=== PATIENT | female | born 1990 | race Two or more races ===

== ENCOUNTER 2023-12-21 17:45 | Outpatient (REF) | payer MEDICAID, SELFPAY ==
[2023-12-22 06:13] LABS: CT PCR NOT DETECTED (Not Detect.); NG PCR NOT DETECTED (Not Detect.)
[2023-12-22 10:43] LABS: Bacterial Vaginosis PCR NEGATIVE (Negative); Candida Group PCR DETECTED (Not Detect); Candida glab krusei PCR NOT DETECTED (Not Detect); Trichomonas vaginalis PCR NOT DETECTED (Not Detect)
== END 2023-12-21 17:46 | disposition home or self-care (01) ==
LOC: HO.HHCLNP 17:45
PROVIDERS: Visit Provider Emergency Medicine
DX: N89.8 Other specified noninflammatory disorders of vagina (principal); R10.2 Pelvic and perineal pain
CPT/HCPCS: 0352U; 87086; 87491; 87591

== ENCOUNTER 2024-07-09 14:33 | Outpatient (REF) | payer MEDICAID, SELFPAY ==
--- OUTSIDE RECORDS SUMMARY | 2024-07-09 17:21 | XMS_ITS | Clinical Summary ---
Author Organization [employer] Address [address] [place] [address] 7 [place] [address] Care Team Providers Care Autism Tutor Name Role Phone Unavailable Primary Care Provider Unavailabl e Allergies No known active allergies Medications acetaminophen (Tylenol) 500 MG tablet Take 2 tablets (1,000 mg) by mouth every 6 (six) hours if needed for moderate pain or fever for up to 25 doses. 30 tablet 12/21/2023 Active ibuprofen 400 MG tablet Take 1 tablet (400 mg) by mouth every 6 (six) hours if needed for moderate pain or fever for up to 30 doses. 30 tablet 12/21/2023 Active Sodium Fluoride (PreviDent 5000 Booster Plus) 1.1 % paste Apply 1 Application. to teeth 2 times daily. 112 g 3 07/05/2024 Active Active Problems No known active problems Encounters Date Type Department Care Team Description 07/09/2024 1:00 PM EST Office Visit [facility] [address] [place] [phone] Mariah Meneses MD Screening examination for STI (Primary Dx) 07/09/2024 Travel 07/05/2024 2:00 PM EST Office Visit [facility] ADULT DENTAL [address] [place] [address] Stephanie West Dental calculus (Primary Dx); Dental plaque; Subgingival dental calculus 06/27/2024 Patient Outreach [facility] [address] [place] [phone] Mariah Meneses MD Care Coordination (CHW outreach for SDOH housing search-referral completed ) 06/27/2024 Patient Outreach [facility] [address] [place] [address] Mariah Meneses MD Pre-visit Planning (SDOH screening positive and tobacco screening negative) 05/04/2024 Telephone [facility] [address] [place] [address] Moses Sinclair MD New patient appt. from Last 3 Months Social History Tobacco Use Types Packs/Day Years Used Date Smoking Tobacco: Never Smokeless Tobacco: Never Tobacco Cessation:Counseling Given: Not Answered Housing Stability Answer Date Recorded What is your housing situation today? I have radha garcia 07/09/[address] you li ve. Do you have problems with any of the following? None of the above 07/09/2024 Food Insecurity Answer Date Recorded Within the past 12 months, y ou worried that your food would run out before you got money to buy more: Never True 06/27/2024 Within the past 12 months,th e food you bought just didn't last and you didn't have enough money to get more: Never True Transportation Answer Date Recorded In the past 12 months, has l ack of transportation kept you from medical appts, meetings, work or from getting things needed for daily living? No 07/09/2024 Utilities Answer Date Recorded In the past 12 months, has t he electric, gas, oil or water company threatened to shut off services in your home? No 06/27/2024 Internet Access Answer Date Recorded Internet Access Q1 No 07/09/2024 Internet Access Q2 I do not want or need it 07/2024 Comments No Sex and Gender Information Value Date Recorded Sex Assigned at Female 12/21/2023 9:03 AM EDT Legal Sex Female 11:31 AM EDT Gender Identity Female 12/21/2023 9:03 AM EDT Sexual Orientation Straight 12/21/2023 9: 03 AM EDT Last Filed Vital Signs Vital Sign Reading Time Taken Comments Blood Pressure 104/66 07/09/2024 1:43 PM EST Pulse 74 07/09/2024 1:43 PM EST Temperature 36.2 ??C (97.2 ??F) 07/09/2024 1:43 PM ES T Respiratory Rate 16 07/09/2024 1:43 PM EST Oxygen Saturation 97% 07/09/2024 1:43 PM EST Inhaled Oxygen Concentration - - Weight 69.1 kg (152 lb 6 oz) 07/09/2024 1:43 PM EST Height 157.5 cm (5' 2 ) 07/09/2024 1:43 PM EST Body Mass Index 27.87 07/09/2024 1:43 PM EST Plan of Treatment Upcoming Encounters Date Type Department Care Team (Late st Contact Info) Description 07/23/2024 3:00 PM EDT Office Visit [facility] [address] [place] [address] Joslyn Issac, DMD [address] [place] [address] Health Maintenance Due Date Last Done Comments Depression Screening 1992 HIV Screening 1992 Alcohol/Substance Use Screening 2004 Family Planning (PISQ) 10/09/2007 Hepatitis C Screening 2010 DTaP/Tdap/Td Vaccines (1 - Tdap) 10/09/2011 Hepatitis B Vaccines (1 of 3 - 19+ 3-dose series) 10/09/2011 Pap Smear 2013 Cervical Cancer Screening 2022 HPV/Cotest 2022 COVID-19 Vaccine ( - 2023-2 5 season) 2024 Influenza Vaccine (#1) 2024 Dental Oral Exam 01/03/2025 07/05/2024 Dental Prophylaxis 01/03/2025 07/05/2024 Dental X-Ray: Bitewings 07/06/2025 07/05/19 25, 12/21/2023 SDOH Screening 07/09/2025 07/09/2024 Tobacco Screening 07/09/2025 07/09/2024 Dental X-Ray: Full Mouth 07/06/2027 07/05/2024 Zoster Vaccines (1 of 2) 2042 RSV Patients and Patients Aged 60 years or older (1 - 1-dose 75+ series) 10/09/2067 HIB Vaccines Aged Out No longer eligi ble based on patient's age to complete this topic HPV Vaccines Aged Out No longer eligi ble based on patient's age to complete this topic Hepatitis A Vaccines Aged Out No long er eligible based on patient's age to complete this topic IPV Vaccines Aged Out No longer eligi ble based on patient's age to complete this topic Meningococcal Vaccine Aged Out No lawanda manish eligible based on patient's age to complete this topic Pneumococcal Vaccine: Pediatrics (0 to 5 Years) and At-Risk Patients (6 to 49) Years) Aged Out No longer eligible b ased on patient's age to complete this topic RSV under 20 months Aged Out No longe r eligible based on patient's age to complete this topic Rotavirus Vaccines Aged Out No longer eligible based on patient's age to complete this topic Procedures Procedure Name Priority Date/Time Associated Diagnosis Comments PERIODIC ORAL EVALUATION - ESTABLISHED PATIENT Routine 07/05/2024 2:00 PM EST CASE PRESENTATION, DETAILED AND EXTENSIVE TREATMENT PLANNING Routine 07/05/2024 2:00 PM EST ORAL HYGIENE INSTRUCTIONS Routine 07/05/2024 2:00 PM EST Dental calculus Dental plaque Subgingival dental calculus INTRAORAL - COMPLETE SERIES OF RADIOGRAPHIC IMAGES Routine 07/05/2024 2:00 PM EST PROPHYLAXIS - ADULT Routine 07/05/2024 2 :00 PM EST Dental calculus Dental plaque Subgingival dental calculus 13 B COMPOSITE FILLING Routine 5 12:00 AM EST 21 MATTHEW COMPOSITE FILLING Routine 07/05/19 25 12:00 AM EST 13 O COMPOSITE FILLING Routine 5 12:00 AM EST 20 O COMPOSITE FILLING Routine 5 12:00 AM EST 8 ML COMPOSITE FILLING Routine 5 12:00 AM EST 29 DO COMPOSITE FILLING Routine 07/05/19 25 12:00 AM EST 2 MO COMPOSITE FILLING Routine 5 12:00 AM EST from Last 3 Months Insurance [employer] [facility] FULL DENTAL - [facility] FULL (MEDICAID) D[facility]AL-[facility] MEDICAID LIMITED ADULT
--- OUTSIDE RECORDS SUMMARY | 2024-07-09 17:21 | XMS_ITS | Encounter Summary ---
Author Organization [employer] Address [address] [facility] 7 [place] [address] Care Team Providers Care Liquor Maker Name Role Phone Unavailable Primary Care Provider Unavailabl e Reason for Visit * Reason Comments Pre-visit Planning SDOH screening posit david and tobacco screening negative Encounter Details Date Type Department Care Team ([facility] Contact Info) Description 06/27/2024 Patient Outreach [facility] [address] [place] [address] Mariah Meneses MD [address] [place] [address] Pre-visit Planning (SDOH screening positive and tobacco screening negative) Social History Tobacco Use Types Packs/Day Years Used Date Smoking Tobacco: Never Smokeless Tobacco: Never Housing Stability Answer Date Recorded What is your housing situation today? I have housing today, but I am worried about losing housing in the future 06/27/[address] you li ve. Do you have problems with any of the following? None of the above 06/27/2024 Food Insecurity Answer Date Recorded Within the [...] from getting things needed for daily living? Yes, it has kept me from non-medical meetings, work, or getting things that I need 06/27/2024 Utilities Answer Date Recorded In the past 12 months, has t he electric, gas, oil or water company threatened to shut off services in your home? No 06/27/2024 Internet Access Answer Date Recorded Internet Access Q1 Yes 06/27/2024 Internet Access Q2 Not on file 06/27/2024 Comments Unknown Sex and Gender Information Value Date Recorded Sex Assigned at Female 12/21/2023 9:03 AM EDT Legal Sex Female 11:31 AM EDT Gender Identity Female 12/21/2023 9:03 AM EDT Sexual Orientation Straight 12/21/2023 9: 03 AM EDT documented as of this encounter Progress Notes * Anastacia Peck - 06/27/2024 9:00 AM EST CC Anastacia placed successful outbound call to patient for pre-visit planning. Patient name and confirmed. Patient confirms date and time, and has transportation arrangements. Biggest concern for appointment appt at this time is none Appropriate screening completed in anticipation of appointment.Patient advised to bring to appointment a photo id and insurance card, SDOH positive. Patient looking for assistance with housing and transportation Referral will be placed. documented in this encounter Plan of Treatment Upcoming Encounters Date Type Department Care Team (Late st Contact Info) Description 07/23/2024 3:00 PM EDT Office Visit [facility] [address] [place] [address] Issac Jorgensen, DMD [address] [place] [address] documented as of this encounter Visit Diagnoses Not on filedocumented in this encounter
--- OUTSIDE RECORDS SUMMARY | 2024-07-09 17:21 | XMS_ITS | Encounter Summary ---
Author Organization [employer] Address [address] [facility] [address] [place] [address] Care Team Providers Care Manager Plan Name Role Phone Unavailable Primary Care Provider Unavailabl e Encounter Details Date Type Department Care Team (Latest Contact Info) Description 07/09/2024 Travel Social History Tobacco Use Types Packs/Day Years [...] AM EDT documented as of this encounter Plan of Treatment Upcoming Encounters Date Type Department Care Team (Late st Contact Info) Description 07/23/2024 3:00 PM EDT Office Visit [facility] ADULT DENT[facility] [address] [place] [address] Issac Jorgensen, DMD [address] [place] [address] documented as of this encounter Visit Diagnoses Not on filedocumented in this encounter
--- OUTSIDE RECORDS SUMMARY | 2024-07-09 17:21 | XMS_ITS | Encounter Summary ---
Author Organization [employer] Address [address] [facility] [address] [place] [address] Care Team Providers Care Delivery Associate Name Role Phone Unavailable Primary Care Provider Unavailabl e Reason for Visit * Reason Comments new patient appointment Encounter Details Date Type Department Care Team (Late st Contact Info) Description 07/09/2024 1:00 PM EST Office Visit [facility] [address] [place], [place] [phone] Mariah Meneses MD [address] [place], [place] [phone] Screening examination for STI (Primary Dx) Social History Tobacco Use Types Packs/Day Years Used Date Smoking Tobacco: Never Smokeless Tobacco: Never Tobacco Cessation:Counseling Given: Not Answered Housing Stability Answer Date Recorded What is your housing situation today? I have radhanegro garcia 07/09/[address] you [...] AM EDT documented as of this encounter Last Filed Vital Signs Vital Sign Reading [...] Mass Index 27.87 07/09/2024 1:43 PM EST documented in this encounter Plan of Treatment Upcoming Encounters Date Type Department Care Team (Late st Contact Info) Description 07/23/2024 3:00 PM EDT Office Visit [facility] ADULT DENT[facility] [address] [place] [address] Issac Jorgensen, DMD [address] [place] [address] Scheduled Orders Name Type Priority Associated Diagnoses Orde r Schedule Bacterial Vaginosis Panel Microbiology Routine Screening examination for STI Ordered: 07/09/2024 Chlamydia/N. Gonorrhoeae RNA, TMA, Urogenitial Microbiology Routine Screening examination for STI Expected: 07/09/2024 (Approximate), Expires: 07/09/2025 HIV-1/2 Antigen and Antibodies, Fourth Generation, with Reflexes Lab Routine Screening examination for STI Expected: 07/09/2024 (Approximate), Expires: 07/09/2025 Hepatitis C Antibody with Reflex to HCV, RNA, Quantitative, Real-Time PCR Lab Routine Screening examination for STI Expected: 07/09/2024, Expires: 07/09/2025 RPR (Monitor) with Reflex to??Titer Lab Routine Screening examination for STI Expected: 07/09/2024, Expires: 07/09/2025 documented as of this encounter Visit Diagnoses Diagnosis Screening examination for STI- Primary documented in this encounter
--- OUTSIDE RECORDS SUMMARY | 2024-07-09 17:21 | XMS_ITS | Encounter Summary ---
Author Organization [employer] Address [address] [facility] [address] [place] [address] Care Team Providers Care Dish Carrier Name Role Phone Unavailable Primary Care Provider Unavailabl e Reason for Visit * Reason Comments Routine Cleaning Dental Exam Encounter Details Date Type Department Care Team (Late st Contact Info) Description 07/05/2024 2:00 PM EST Office Visit [facility] ADULT DENTAL [address] [place] [address] Stephanie West Dental calculus (Primary Dx); Dental plaque; Subgingival dental calculus Social History Tobacco Use Types Packs/Day Years [...] not want or need it 07/2024 Comments Unknown Sex and Gender Information Value Date Recorded Sex Assigned at Female 12/21/2023 9:03 AM EDT Legal Sex Female 11:31 AM EDT Gender Identity Female 12/21/2023 9:03 AM EDT Sexual Orientation Straight 12/21/2023 9: 03 AM EDT documented as of this encounter Last Filed Vital Signs Vital Sign Reading Time Taken Comments Blood Pressure 126/82 07/05/2024 2:02 PM EST Pulse - - Temperature - - Respiratory Rate - - Oxygen Saturation - - Inhaled Oxygen Concentration - - Weight - - Height - - Body Mass Index - - documented in this encounter Progress Notes * Issac Jorgensen DMD - 07/05/2024 2:00 PM EST C/C: dental exam and sensitive LR posterior teeth I.O.E: erythematous and edematous gingiva, gen plaque and calculus accumulation, multiple broken fillings E.O.E: wnl OCS: wnl Head and neck: wnl Radiographic: gen moderate periodontal bone loss, multiple broken fillings with recurrent carious teeth Dx: gen chronic moderate periodontitis, multiple broken fillings, multiple carious teeth Tx: prophy, recall exam, fillings, SRP Med: Prevident Booster x 2 refills Suzy * Stephanie West - 07/05/2024 2:00 PM EST Patient ID: Yennifer Charles is a 33 y.o. female. Time Out: No data recorded Location: [facility] Tooth: Maxilla and Mandible Procedure: Exam, X-rays, and Prophylaxis Verified the above with patient, diploma medical assistant, and provider. Confirmed via patient's chart, intraorally and by radiographs. Research And Development Director: not applicable Medical Hx: Vitals: Blood pressure 126/82. Medications, Med Hx reviewed with patient and updated in chart. Treatment Provided Dental procedures in this visit D1110 - PROPHYLAXIS - ADULT (Completed) Service provider: Stephanie West Billing provider: Issac Jorgensen DMD D0210 - INTRAORAL - COMPLETE SERIES OF RADIOGRAPHIC IMAGES (Completed) Service provider: Stephanie West Billing provider: Issac Jorgensen DMD D0120 - PERIODIC ORAL EVALUATION - ESTABLISHED PATIENT (Completed) Service provider: Issac Jorgensen DMD Billing provider: Issac Jorgensen DMD D1330 - ORAL HYGIENE INSTRUCTIONS (Completed) Service provider: Stephanie West Billing provider: Issac Jorgensen DMD [id number] - CASE PRESENTATION, DETAILED AND EXTENSIVE TREATMENT PLANNING (Completed) Service provider: Stephanie West Billing provider: Issac Jorgensen DMD Instruments Used: Ultrasonic Scalers, Prophy angle, and floss Fluoride: N/A Oral Cancer Screening: No lesions Head/Neck Exam: No Lesions Calculus: Heavy, Generalized, and Subgingival Plaque: Moderate and Generalized Stain: None Bleeding: Heavy and Generalized Gingiva: Perio Charting Completed, Bleeding on probing, Erythematous, and Inflamed OH: Poor Perio Chart: Completed Patient presents with periodontal disease. Calculus present Subgingivally and Generalized that can be seen radiographically. BOP: Generalized and Heavy Exudate: Not Present Mobility: 0 Generalized Probing Depths Range: 4 to 5 mm Recession: 0 ranging from 0 to 0 mm. Gingiva: Inflamed and Erythematous Bone loss visible radiographically: Generalized Pre Authorization requested for SRP. SRP treatment needed to promote gingival health, arrest disease progression of periodontal disease and prevent tooth loss. Provider: Stephanie West Oral hygiene instructions provided to patient including brushing technique and flossing. Recommendations: [place] two times daily, modified galvez technique, Floss daily, Electric toothbrush, Soft bristle toothbrush, [place] Tongue, Anti-sensitivity toothpaste Recall Frequency: 6 mo NV: Upon localized SRP approval Hygienist: Stephanie West RDH Cosigned by Issac Jorgensen DMD at 07/09/2024 3:57 PM EST documented in this encounter Plan of Treatment Upcoming Encounters Date Type Department Care Team (Late st Contact Info) Description 07/23/2024 3:00 PM EDT Office Visit [facility] ADULT DENT[facility] [address] [place] [address] Issac Jorgensen DMD [address] [place] [address] Scheduled Orders Name Type Priority Associated Diagnoses Orde r Schedule UL UL PERIODONTAL SCALING AND ROOT PLANING - 1 TO 3 TEETH PER QUADRANT Dental Routine 1 Occurrences 07/05/2024 LL LL PERIODONTAL SCALING AND ROOT PLANING - 1 TO 3 TEETH PER QUADRANT Dental Routine 1 Occurrences 07/05/2024 UR UR PERIODONTAL SCALING AND ROOT PLANING - 1 TO 3 TEETH PER QUADRANT Dental Routine 1 Occurrences 07/05/2024 LR LR PERIODONTAL SCALING AND ROOT PLANING - 1 TO 3 TEETH PER QUADRANT Dental Routine 1 Occurrences 07/05/2024 30 MOD 30 MOD RESIN-BASED COMPOSITE - 3 SURF, POSTERIOR Dental Routine 1 Occurrences starting 07/05/2024 31 MO 31 MO RESIN-BASED COMPOSITE - 2 SURF, POSTERIOR Dental Routine 1 Occurrences 07/05/2024 4 MO 4 MO RESIN-BASED COMPOSITE - 2 SURF, POSTERIOR Dental Routine 1 Occurrences 07/05/2024 29 DO 29 DO RESIN-BASED COMPOSITE - 2 SURF, POSTERIOR Dental Routine 1 Occurrences 07/05/2024 10 ML 10 ML RESIN-BASED COMPOSITE - 2 SURF, ANTERIOR Dental Routine 1 Occurrences 07/05/2024 12 DO 12 DO RESIN-BASED COMPOSITE - 2 SURF, POSTERIOR Dental Routine 1 Occurrences 07/05/2024 documented as of this encounter Procedures Procedure Name Priority Date/Time Associated Diagnosis Comments PROPHYLAXIS - ADULT Routine 07/05/2024 2 :00 PM EST Dental calculus Dental plaque Subgingival dental calculus PERIODIC ORAL EVALUATION - ESTABLISHED PATIENT Routine 07/05/2024 2:00 PM EST ORAL HYGIENE INSTRUCTIONS Routine 07/05/2024 2:00 PM EST Dental calculus Dental plaque Subgingival dental calculus INTRAORAL - COMPLETE SERIES OF RADIOGRAPHIC IMAGES Routine 07/05/2024 2:00 PM EST CASE PRESENTATION, DETAILED AND EXTENSIVE TREATMENT PLANNING Routine 07/05/2024 2:00 PM EST 13 B COMPOSITE FILLING Routine 5 12:00 [...] COMPOSITE FILLING Routine 5 12:00 AM EST documented in this encounter Visit Diagnoses Diagnosis Dental calculus- Primary Accretions on teeth Dental plaque Accretions on teeth Subgingival dental calculus Accretions on teeth documented in this encounter
--- OUTSIDE RECORDS SUMMARY | 2024-07-09 17:21 | XMS_ITS | Encounter Summary ---
Author Organization [employer] Address [address] [facility] 7 [place] [address] Care Team Providers Care Blood Bank Business Manager Name Role Phone Unavailable Primary Care Provider Unavailabl e Reason for Visit * Reason Comments Care Coordination CHW outreach for SDO H housing search-referral completed Encounter Details Date Type Department Care Team (Latest Contact Info) Description 06/27/2024 Patient Outreach [facility] MED[facility] [address] [place] [address] Mariah Meneses MD [address] [place] [address] Care Coordination (CHW outreach for SDOH housing search-referral completed ) Social History Tobacco Use Types Packs/Day Years [...] as of this encounter Progress Notes * Leonid Good - 06/27/2024 1:06 PM EST CHW Leonid Good, placed outbound call to patient for assistance with SDOH as a referral was received by the provider. Patient's name and were confirmed. Patient screened positive for the following SDOH housing insecurities. CHW referred patient to list of housing and applications mail out to address on file. Patient verbalizes understanding, and able to agree to follow up with housing search and call. Patient educated on extended clinic hours on Mondays through Wednesdays, and Walk-In Urgent Care Located in [facility]. Patient provided with after-hours line for [facility], , which offer night time triage service and option to transfer to patient registration clerk provider if needed. documented in this encounter Plan of Treatment Upcoming Encounters Date Type Department Care Team (Late st Contact Info) Description 07/23/2024 3:00 PM EDT Office Visit [facility] ADULT DENTAL [address] [place] [address] Issac Jorgensen, DMD [address] [place] [address] documented as of this encounter Visit Diagnoses Not on filedocumented in this encounter
[2024-07-10 08:13] LABS: HIV AB/AG Nonreactive (Nonreactive); HIV Num 1 0.06 S/CO (0.00-0.99); ~HepC Num1 0.07 S/CO (0.00-0.79); ~Hepatitis C Antibody Nonreactive (Nonreactive)
[2024-07-10 11:38] LABS: RPR Rapid Plasma Reagin NON-REACTIVE (NON-REACTIVE)
[2024-07-10 13:09] LABS: CT PCR NOT DETECTED (Not Detect.); NG PCR NOT DETECTED (Not Detect.)
== END 2024-07-09 14:34 | disposition home or self-care (01) ==
LOC: HO.HHCL 14:33
PROVIDERS: Visit Provider General Practice
DX: Z11.3 Encounter for screening for infections with a predominantly sexual mode of transmission (principal)
CPT/HCPCS: 81515; 86592; 86803; 87389; 87491; 87591

== ENCOUNTER 2024-07-09 16:41 | Outpatient (REF) | payer MEDICAID, SELFPAY ==
--- OUTSIDE RECORDS SUMMARY | 2024-07-09 19:00 | XMS_ITS | Encounter Summary ---
Author Organization [facility] [employer] Address [address] [facility] 7t [place] [address] Care Team Providers Care Chip Applying Machine Tender Name Role Phone Unavailable Primary Care Provider Unavailabl e Reason for Visit * Reason Comments Routine Cleaning Dental Exam Encounter Details Date Type Department Care Team (Late st Contact Info) Description 07/05/2024 2:00 PM EST Office Visit [facility] ADULT DENTAL [address] [place] [address] Stephanie West Dental calculus (Primary Dx); Dental [...] female. Time Out: No data recorded Location: [facility] Tooth: Maxilla and Mandible Procedure: Exam, X-rays, and Prophylaxis Verified the above with patient, printing bindery assistant, and provider. Confirmed via patient's chart, intraorally and by radiographs. Commodities Broker: not applicable Medical Hx: Vitals: Blood pressure [...] patient including brushing technique and flossing. Recommendations: [place] two times daily, modified galvez technique, Floss daily, Electric toothbrush, Soft bristle toothbrush, [place] Tongue, Anti-sensitivity toothpaste Recall Frequency: 6 mo NV: Upon localized SRP approval Hygienist: Stephanie West RDH Cosigned by Issac Jorgensen DMD at 07/09/2024 3:57 PM EST documented in this encounter Plan of Treatment Upcoming Encounters Date Type Department Care Team (Late st Contact Info) Description 07/23/2024 3:00 PM EDT Office Visit [facility] ADULT DENTAL [address] [place] [address] Issac Jorgensen DMD [address] [place] [address] Scheduled Orders Name Type Priority Associated Diagnoses [...]
--- OUTSIDE RECORDS SUMMARY | 2024-07-09 19:00 | XMS_ITS | Encounter Summary ---
Author Organization [employer] Address [address] [facility] 7 [place] [address] Care Team Providers Care Senior Marketing Engineer Name Role Phone Unavailable Primary Care Provider Unavailabl e Reason for Visit * Reason Comments Care Coordination CHW outreach for SDO H housing search-referral completed Encounter Details Date Type Department Care Team (Latest Contact Info) Description 06/27/2024 Patient Outreach [facility] [address] [place] [address] Mariah Meneses MD [address] [place] [address] Care Coordination (CHW outreach for SDOH housing [...] Wednesdays, and Walk-In Urgent Care Located in [facility]. Patient provided with after-hours line for [facility], , which offer night time triage service and option to transfer to windows consultant provider if needed. documented in this encounter Plan of Treatment Upcoming Encounters Date Type Department Care Team (Late st Contact Info) Description 07/23/2024 3:00 PM EDT Office Visit [facility] ADULT DENTAL [address] [place] [address] Issac Jorgensen, DMD [address] [place] [address] documented as of this encounter Visit Diagnoses Not on filedocumented in this encounter
--- OUTSIDE RECORDS SUMMARY | 2024-07-09 19:00 | XMS_ITS | Clinical Summary ---
Author Organization [employer] Address [address] [place] [address] 7 [place] [address] Care Team Providers Care Staff Radiographer Name Role Phone Unavailable Primary Care Provider [...] Description 07/09/2024 1:00 PM EST Office Visit [facility] [address] [place] [phone] Mariah Meneses MD Screening examination for STI (Primary Dx) 07/09/2024 Travel 07/05/2024 2:00 PM EST Office Visit [facility]ULT [facility] [address] [place] [address] Stephanie West Dental calculus (Primary Dx); Dental plaque; Subgingival dental calculus 06/27/2024 Patient Outreach [facility] [address] [place] [phone] Mariah Meneses MD Care Coordination (CHW outreach for SDOH housing search-referral completed ) 06/27/2024 Patient Outreach [facility] [address] [place] [phone] Mariah Meneses MD Pre-visit Planning (SDOH screening positive and tobacco screening negative) 05/04/2024 Telephone [facility] [address] [place] [address] Moses Sinclair MD New patient appt. from [...] Description 07/23/2024 3:00 PM EDT Office Visit [facility] ADULT [facility] [address] [place] [address] Joslyn Issac, DMD [address] [place] [address] Health Maintenance Due Date Last Done Comments [...] AM EST from Last 3 Months Insurance [employer] HSN FULL DENTAL - HSN FULL (MEDICAID) DENTAL-[facility] MEDICAID LIMITED ADULT
--- OUTSIDE RECORDS SUMMARY | 2024-07-09 19:00 | XMS_ITS | Encounter Summary ---
Author Organization [employer] Address [address] [facility] 7 [place] [address] Care Team Providers Care Mop Maker Name Role Phone Unavailable Primary Care Provider Unavailabl e Reason for Visit * Reason Comments Pre-visit Planning SDOH screening posit david and tobacco screening negative Encounter Details Date Type Department Care Team ([facility] Contact Info) Description 06/27/2024 Patient Outreach [facility] [address] [place] [address] Mariah Meneses MD [address] [place] [address] Pre-visit Planning (SDOH screening positive and tobacco [...] Description 07/23/2024 3:00 PM EDT Office Visit [facility] ADULT D[facility] [address] [place] [address] Issac Jorgensen, DMD [address] [place] [address] documented as of this encounter Visit Diagnoses Not on filedocumented in this encounter
--- OUTSIDE RECORDS SUMMARY | 2024-07-09 19:00 | XMS_ITS | Encounter Summary ---
Author Organization [employer] Address 75 [facility] 7 [place] [address] Care Team Providers Care Plexiglas Former Name Role Phone Unavailable Primary Care Provider Unavailabl e Reason for Visit * Reason Comments new patient appointment Encounter Details Date Type Department Care Team (Late st Contact Info) Description 07/09/2024 1:00 PM EST Office Visit [facility] [address] [place], [place] [phone] Mariah Meneses MD [address] [place], [place] [phone] Screening examination for STI (Primary Dx) Social [...] 3:00 PM EDT Office Visit [facility] ADULT D[facility] [address] [place] [address] Issac Jorgensen, DMD [address] [place] [address] Scheduled Orders Name Type Priority Associated Diagnoses [...]
--- OUTSIDE RECORDS SUMMARY | 2024-07-09 19:01 | XMS_ITS | Encounter Summary ---
Author Organization [employer] Address 75 [facility] 7t [place] [address] Care Team Providers Care Tooler Name Role Phone Unavailable Primary Care Provider [...] Description 07/23/2024 3:00 PM EDT Office Visit [facility] ADULT DENTAL [address] [place] [address] Issac Jorgensen, DMD [address] [place] [address] documented as of this encounter Visit Diagnoses Not on filedocumented in this encounter
[2024-07-10 11:05] LABS: Bacterial Vaginosis PCR POSITIVE (Negative); Candida Group PCR NOT DETECTED (Not Detect); Candida glab krusei PCR NOT DETECTED (Not Detect); Trichomonas vaginalis PCR NOT DETECTED (Not Detect)
== END 2024-07-09 16:42 | disposition home or self-care (01) ==
LOC: HO.LNP 16:41
PROVIDERS: Visit Provider General Practice
DX: Z11.3 Encounter for screening for infections with a predominantly sexual mode of transmission (principal)
CPT/HCPCS: 81515

== ENCOUNTER 2024-08-29 13:41 | Outpatient (REF) | payer MEDICAID, SELFPAY ==
[2024-08-29 15:10] LABS: Bacterial Vaginosis PCR POSITIVE (Negative); Candida Group PCR DETECTED (Not Detect); Candida glab krusei PCR NOT DETECTED (Not Detect); Trichomonas vaginalis PCR NOT DETECTED (Not Detect)
[2024-08-29 15:42] LABS: CT PCR NOT DETECTED (Not Detect.); NG PCR NOT DETECTED (Not Detect.)
--- OUTSIDE RECORDS SUMMARY | 2024-08-29 16:21 | XMS_ITS | Clinical Summary ---
Author Organization [employer] Address 75 [facility] 7t [place] [address] Care Team Providers Care Manager Assisted Living Name Role Phone Mariah Meneses MD Primary Care Provider [phone] Allergies No known active allergies Medications clotrimazole (Gyne-Lotrimin ) 1 % vaginal creamIndicatio ns:Vaginal pain,Vaginal discharge Insert 1 applicator into the vagina in the evening for 7 days. 45 g 08/30/19 25 025 Active acetaminophen (Tylenol) 500 MG tablet Take 2 tablets (1,000 mg) by mouth every 6 (six) hours if needed for moderate pain or fever for up to 25 doses. 30 tablet 12/21/19 24 025 Discontinued ibuprofen 400 MG tablet Take 1 tablet (400 mg) by mouth every 6 (six) hours if needed for moderate pain or fever for up to 30 doses. 30 tablet 12/21/19 24 025 Discontinued Sodium Fluoride (PreviDent 5000 Booster Plus) 1.1 % paste Apply 1 Application. to teeth 2 times daily. 112 g 3 07/05/19 25 025 Discontinued Active Problems Problem Noted Date Diagnosed Date Vaginal discharge 08/29/2024 Assessment & Plan (08/29/2024 1:09 PM EDT): Possible yeast infection I will treat empirically wit clotrimazole cream, patient will be contacted with results Screening examination for STI 07/11/2024 Encounters Date Type Department Care Team Description 08/29/2024 10:00 AM EDT Office Visit [facility] [address] [phone] Sandra Garcia MD Vaginal pain; Vaginal discharge 07/23/2024 3:00 PM EDT Office Visit [facility] ADULT DENTAL [address] [place] [address] Rastaandrés IssacDARRELL 07/11/2024 [place] [address] Mariah Meneses MD Results 07/09/2024 1:00 [place] [address] Mariah Meneses MD Screening examination for STI (Primary Dx); Dietary counseling; Exercise counseling; Overweight; Inadequate housing utilities; Bacterial vaginosis 07/09/2024 Travel 07/05/2024 2:00 PM EST Office Visit [facility] ADULT [facility] [address] [place] [address] Stephanie West Dental calculus (Primary Dx); Dental plaque; Subgingival dental calculus 06/27/2024 [place] [address] Mariah Meneses MD Care Coordination (CHW outreach for [facility] housing search-referral completed ) 06/27/2024 [place] [address] Mariah Meneses MD Pre-visit Planning (SDOH screening positive and tobacco screening negative) from Last 3 Months Social History Tobacco Use Types Packs/Day Years Used Date Smoking Tobacco: Never Smokeless Tobacco: Never Tobacco Cessation:Counseling Given: Not Answered Alcohol Use Standard Drinks/Week Comments Never 0 (1 standard drink = 0.6 oz pur e alcohol) Housing Stability Answer Date Recorded What is your housing situation today? I have radha jose 07/09/[address] you li [...] Sign Reading Time Taken Comments Blood Pressure 109/69 08/29/2024 9:41 AM EDT Pulse 75 08/29/2024 9:41 AM EDT Temperature 36.7 ??C (98.1 ??F) 08/29/2024 9:41 AM ED T Respiratory Rate 16 08/29/2024 9:41 AM EDT Oxygen Saturation 98% 08/29/2024 9:41 AM EDT Inhaled Oxygen Concentration - - Weight 70.3 kg (155 lb) 08/29/2024 9:41 AM EDT Height 157.5 cm (5' 2 ) 07/09/2024 1:43 PM EST Body Mass Index 28.35 07/09/2024 1:43 PM EST Plan of Treatment Upcoming Encounters Date Type Department Care Team (Late st Contact Info) Description 09/03/2024 3:00 PM EDT Office Visit [facility]ULT [facility] [address] [place] [address] Issac Jorgensen, DARRELL [address] [place] [address] 09/17/2024 2:00 PM EDT Office Visit [facility] [address] [place] [address] Stephanie West 10/17/2024 2:00 PM EDT Office Visit [facility] [address] [place] [address] Jenna Stephanie Health Maintenance Due Date Last Done Comments Depression Screening 1992 Alcohol/Substance Use Screening 2004 DTaP/Tdap/Td Vaccines (1 - Tdap) 10/09/2011 Hepatitis B Vaccines (1 of 3 - 19+ 3-dose series) 10/09/2011 Pap Smear 2013 Cervical Cancer Screening 2022 HPV/Cotest 2022 COVID-19 Vaccine (1 - 2023-2 5 season) 2024 Influenza Vaccine (#1) 2024 Dental Oral Exam 01/03/2025 07/05/2024 Dental Prophylaxis 01/03/2025 07/05/2024 Dental X-Ray: Bitewings 07/06/2025 07/05/19 25, 12/21/2023 SDOH Screening 07/09/2025 07/09/2024 Family Planning (PISQ) 07/11/2025 07/11/2024 Tobacco Screening 07/23/2025 07/23/2024 Dental X-Ray: Full Mouth 07/06/2027 07/05/2024 Zoster Vaccines (1 of 2) 2042 RSV Patients and Patients Aged 60 years or older (1 - 1-dose 75+ series) 10/09/2067 HIV Screening Completed 07/09/2024 Hepatitis C Screening Completed 07/09/2024 HIB Vaccines Aged Out No longer eligi [...] Procedure Name Priority Date/Time Associated Diagnosis Comments POCT URINALYSIS DIPSTICK Routine 08/29/2024 9:53 AM EDT Vaginal pain BACTERIAL VAGINOSIS PANEL Routine 08/29/2024 9:44 AM EDT Vaginal pain CHLAMYDIA/N. GONORRHOEAE RNA, TMA, UROGENITAL Routine 08/29/2024 9:44 AM EDT Vaginal pain CASE PRESENTATION, DETAILED AND EXTENSIVE TREATMENT PLANNING Routine 07/23/2024 3:00 PM EDT 12 DO RESIN-BASED COMPOSITE - 2 SURF, POSTERIOR Routine 07/23/2024 3:00 PM EDT 19 B RESIN-BASED COMPOSITE - 1 SURF, POSTERIOR Routine 07/23/2024 3:00 PM EDT RPR (MONITOR) W/REFL TITER Routine 07/09/2024 2:36 PM EST Screening examination for STI HEPATITIS C AB W/REFL TO HCV RNA, QN, PCR Routine 07/09/2024 2:36 PM EST Screening examination for STI HIV 1/2 ANTIGEN/ANTIBODY, FOURTH GENERATION W/RFL Routine 07/09/2024 2:36 PM EST Screening examination for STI CHLAMYDIA/N. GONORRHOEAE RNA, TMA, UROGENITAL Routine 07/09/2024 2:36 PM EST Screening examination for STI BACTERIAL VAGINOSIS PANEL Routine 07/09/2024 12:00 AM EST Screening examination for STI PERIODIC ORAL EVALUATION - ESTABLISHED PATIENT Routine [...] dental calculus 13 B COMPOSITE FILLING Routine 07/05/2024 12:00 AM EST 21 MATTHEW COMPOSITE FILLING Routine 07/05/2024 12:00 AM EST 13 O COMPOSITE FILLING Routine 07/05/2024 12:00 AM EST 20 O COMPOSITE FILLING Routine 07/05/2024 12:00 AM EST 8 ML COMPOSITE FILLING Routine 07/05/2024 12:00 AM EST 29 DO COMPOSITE FILLING Routine 07/05/2024 12:00 AM EST 2 MO COMPOSITE FILLING Routine 07/05/2024 12:00 AM EST from Last 3 Months Results * (ABNORMAL) POCT urinalysis dipstick manually resulted (08/29/2024 9:53 AM EDT) Color, UA Yellow Clarity, UA Clear Glucose, UA Negative Bilirubin, UA Negative Ketones, UA Negative Spec Grav, UA 1.025 Blood, UA Negative Negative, None Detected pH, UA 6.0 Protein, UA Negative Urobilinogen, UA 0.2 Leukocytes, UA Few 15(A) Negative, Rare, Trace Nitrite, UA Negative Negative, None Detected Appearance, UA OK Urine 08/29/2024 9:53 AM EDT Sandra Portillo MD POINT OF CARE TEST EN TER/EDIT ORDERABLES Final Result * (ABNORMAL) Bacterial Vaginosis (08/29/2024 9:44 AM EDT) Only the most recent of2 resultswithin the time period is included. TRICHOMONAS VAGINALIS DETECTION BY PCR NOT DETECTED Not Detect [facility] BACTERIAL VAGINOSIS DETECTION BY PCR POSITIVE(A) Negative [facility] Comment:The BV organism targ ets of the Xpert Xpress MVP test can becommensal in women; Xpert Xpress MVP positive results forbacterial vaginosis should be considered in conjunction withother clinical and patient information to determine thedisease status. Organisms that are not detected by the XpertXpress MVP test have also been reported to be associatedwith BV and aerobic vaginitis.The Xpert Xpress MVP test performance has not been evaluatedin patients under the age of 14. LIDA GROUP DETECTION BY PCR DETECTED(A) Not Detect [facility] Lida glab krusei PCR NOT DETECTED Not Detect [facility] Swab Vaginal structure / Unknown 08/29/2024 9:44 AM EDT 08/29/2024 1:43 PM EDT Sandra Portillo MD LAB MICROBIOLOGY - GE NERAL ORDERABLES Final Result [facility] [address] [place] [address] [phone] * Chlamydia/N. Gonorrhoeae RNA, TMA, Urogenitial (08/29/2024 9:44 AM EDT) Only the most recent of2 resultswithin the time period is included. CT PCR NOT DETECTED Not Detect. [facility] Comment:A not detected test result does not exclude the possibilityof infection because test results can be affected byimproper specimen collection, concurrent antibiotic therapy,or the number of organisms in the specimen which may bebelow the sensitivity of the test. As with many diagnostictests, results from the Xpert CT/NG assay should beinterpreted in conjunction with other laboratory andclinical data available to the clinician.Xpert CT/NG performance has not been evaluated in patientsless than 14 years of age. The assay should not be used forthe evaluationof suspected sexual abuse or for other medico-legalindications. Additional testing is recommended in anycircumstance when false positive or false negative resultscould lead to adverse medical, social or psychologicalconsequences. NG PCR NOT DETECTED Not Detect. [facility] Comment:A not detected test result does not exclude the possibilityof infection because test results can be affected byimproper specimen collection, concurrent antibiotic therapy,or the number of organisms in the specimen which may bebelow the sensitivity of the test. As with many diagnostictests, results from the Xpert CT/NG assay should beinterpreted in conjunction with other laboratory andclinical data available to the clinician.Xpert CT/NG performance has not been evaluated in patientsless than 14 years of age. The assay should not be used forthe evaluationof suspected sexual abuse or for other medico-legalindications. Additional testing is recommended in anycircumstance when false positive or false negative resultscould lead to adverse medical, social or psychologicalconsequences. Swab (Vaginal Swab) 08/29/2024 9:44 AM EDT 08/29/2024 1:43 PM EDT Narrative [facility] - 08/29/2024 3:42 PM EDT Vaginal us Sandra Portillo MD LAB MICROBIOLOGY - GE NERAL ORDERABLES Final Result Performing Organization Address [facility] Co de Phone Number [facility] [address] [place] [phone] * Hepatitis C Antibody with Reflex to HCV, RNA, Quantitative, Real-Time PCR (07/09/2024 2:36 PM EST) Hepatitis C Antibody Nonreactive Nonreactive [facility] Comment:Antibodies to HCV no t detected; does not exclude early acuteHCV infection. Blood Venous blood specimen / Unknown 07/09/2024 2:36 PM EST 07/09/2024 4:20 PM EST us Mariah Meneses MD LAB BLOOD ORDERABLES Final Res ult Performing Organization Address [facility] Co de Phone Number [facility] [address] [place] [phone] * RPR (Monitor) with Reflex to??Titer (07/09/2024 2:36 PM EST) RPR (Monitor) w/Refl Titer NON-REACTI VE NON-REACT AUGIE [facility] Comment:THIS TEST WAS PERFOR MED AT:[address] [place] [phone] KEITA MD Rapid Plasma Reagin Ab Titer TNP [facility] Blood Venous blood specimen / Unknown 07/09/2024 2:36 PM EST 07/09/2024 4:20 PM EST us Mariah Meneses MD LAB BLOOD ORDERABLES Final Res ult Performing Organization Address [facility]/ZIP Co de Phone Number [facility] [address] [place] [phone] * HIV-1/2 Antigen and Antibodies, Fourth Generation, with Reflexes (07/09/2024 2:36 PM EST) HIV AB/AG Nonreactive Nonreactive [facility] Comment:HIV-1 p24 Ag and/or HIV-1/HIV-2 Ab not detected.A test result that is nonreactive does not exclude thepossibility of exposure to or infection with HIV-1 and/orHIV-2. Nonreactive results in this assay for individualswith prior exposure to HIV-1 and/or HIV-2 may be due toantigen and antibody levels that are below the limit ofdetection of this assay.The Granular HIV Ag/Ab Combo assay result andsupplemental assay results should be interpreted inconjunction with the patient's clinical presentation,history and other laboratory results. If the results areinconsistent with clinical evidence, additional testing issuggested to confirm the result. Blood Venous blood specimen / Unknown 07/09/2024 2:36 PM EST 07/09/2024 4:20 PM EST us Mariah Meneses MD LAB BLOOD ORDERABLES Final Res ult Performing Organization Address [facility] Co de Phone Number [facility] [address] [place] [phone] from Last 3 Months Insurance [employer] HSN FULL DENTAL - HSN FULL (MEDICAID) DENTAL-[facility] MEDICAID LIMITED ADULT Care Teams Manager Assisted Living Relationship Specialty Start Date End Date Mariah Meneses MD [address] [place] [phone] PCP - General Family Medicine 07/11/24
--- OUTSIDE RECORDS SUMMARY | 2024-08-29 16:21 | XMS_ITS | Encounter Summary ---
Author Organization [employer] Address [address] [facility] 7t [place] [address] Care Team Providers Care Scratch Finisher Name Role Phone Mariah Meneses MD Primary Care Provider [phone] Reason for Visit * Reason Comments Vaginal Pain Encounter Details Date Type Department Care Team ([facility] st Contact Info) Description 08/29/2024 10:00 AM EDT Office Visit [facility] [address] [place] [address] [phone] Sandra Garcia MD [address] [place] [address] Vaginal pain; Vaginal discharge Social History Tobacco Use Types Packs/Day Years Used Date Smoking Tobacco: Never Smokeless Tobacco: Never Alcohol Use Standard Drinks/Week Comments Never 0 [...] (155 lb) 08/29/2024 9:41 AM EDT Height - - Body Mass Index 28.35 07/09/2024 1:43 PM EST documented in this encounter Progress Notes * Sandra Portillo MD - 08/29/2024 10:00 AM EDT SUBJECTIVE: Yennifer Charles is a 33 y.o. year old female who presents for vaginal pain/burning/itchiness and discharge . 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 Review of Systems Constitutional: Negative. HENT: Negative. Respiratory: Negative. Cardiovascular: Negative. Genitourinary: Positive for dysuria, vaginal discharge and vaginal pain. Negative for decreased urine volume, difficulty urinating, dyspareunia, enuresis, flank pain, frequency, genital sores, hematuria, menstrual problem, pelvic pain, urgency and vaginal bleeding. OBJECTIVE: Vitals: 08/29/24 0941 BP: 109/69 BP Location: Left arm Patient Position: Sitting BP Cuff Size: Adult Pulse: 75 Resp: 16 Temp: 98.1 ??F (36.7 ??C) TempSrc: Temporal SpO2: 98% Weight: 155 lb (70.3 kg) Physical Exam Constitutional: Appearance: Normal appearance. Cardiovascular: Rate and Rhythm: Normal rate and regular rhythm. Pulmonary: Effort: Pulmonary effort is normal. Breath sounds: Normal breath sounds. Abdominal: General: Abdomen is flat. Palpations: Abdomen is soft. Musculoskeletal: Right lower leg: No edema. Left lower leg: No edema. Neurological: Mental Status: She is alert. Follow Up: No follow-ups on file. Current Outpatient Medications on File Prior to Visit Medication Sig Dispense Refill [DISCONTINUED] acetaminophen (Tylenol) 500 MG tablet Take 2 tablets (1,000 mg) by mouth every 6 (six) hours if needed for moderate pain or fever for up to 25 doses. (Patient not taking: Reported on 07/23/2024) 30 tablet 0 [DISCONTINUED] ibuprofen 400 MG tablet Take 1 tablet (400 mg) by mouth every 6 (six) hours if needed for moderate pain or fever for up to 30 doses. (Patient not taking: Reported on 07/23/2024) 30 tablet 0 [DISCONTINUED] Sodium Fluoride (PreviDent 5000 Booster Plus) 1.1 % paste Apply 1 Application. to teeth 2 times daily. (Patient not taking: Reported on 07/23/2024) 112 g 3 No current facility-administered medications on file prior to visit. Problem List Items Addressed This Visit Vaginal discharge Possible yeast infection I will treat empirically wit clotrimazole cream, patient will be contactedwith results Relevant Medications clotrimazole (Gyne-Lotrimin) 1 % vaginal cream Other Relevant Orders Culture, Urine, Routine Other Visit Diagnoses Vaginal pain Relevant Medications clotrimazole (Gyne-Lotrimin) 1 % vaginal cream Other Relevant Orders Chlamydia/N. Gonorrhoeae RNA, TMA, Urogenitial Bacterial Vaginosis POCT urinalysis dipstick manually resulted (Completed) documented in this encounter Miscellaneous Notes * Assessment & Plan Note - Sandra Portillo MD - 08/29/2024 1:09 PM EDT Associated Problem(s): Vaginal discharge Possible yeast infection I will treat empirically wit clotrimazole cream, patient will be contactedwith results documented in this encounter Plan of Treatment Upcoming Encounters Date Type Department Care Team (Late st Contact Info) Description 09/03/2024 3:00 PM EDT Office Visit [facility] [address] [place] [address] Issac Jorgensen, DMD [address] [place], [place] [phone] 09/17/2024 2:00 PM EDT Office Visit [facility] [address] [place] [address] Stephanie West 10/17/2024 2:00 PM EDT Office Visit [facility] [address] [place] [address] Stephanie West Scheduled Orders Name Type Priority Associated Diagnoses Orde r Schedule Culture, Urine, Routine Microbiology Routine Vaginal discharge Ordered: 08/29/2024 documented as of this encounter Procedures Procedure Name Priority Date/Time Associated Diagnosis Comments POCT URINALYSIS DIPSTICK Routine 08/29/2024 9:53 AM EDT Vaginal pain BACTERIAL VAGINOSIS PANEL Routine 08/29/2024 9:44 AM EDT Vaginal pain CHLAMYDIA/N. GONORRHOEAE RNA, TMA, UROGENITAL Routine 08/29/2024 9:44 AM EDT Vaginal pain documented in this encounter Results * (ABNORMAL) POCT urinalysis dipstick manually [...] (ABNORMAL) Bacterial Vaginosis (08/29/2024 9:44 AM EDT) TRICHOMONAS VAGINALIS DETECTION BY PCR NOT DETECTED Not Detect [facility] BACTERIAL VAGINOSIS DETECTION BY PCR POSITIVE(A) Negative [facility] Comment:The BV organism targ ets of [...] GROUP DETECTION BY PCR DETECTED(A) Not Detect [facility] Lida glab krusei PCR NOT DETECTED Not Detect [facility] Swab Vaginal structure / Unknown 08/29/2024 9:44 AM EDT 08/29/2024 1:43 PM EDT Sandra Portillo MD LAB MICROBIOLOGY - GE NERAL ORDERABLES Final Result [facility] [address] [place] [address] [phone] * Chlamydia/N. Gonorrhoeae RNA, TMA, Urogenitial (08/29/2024 9:44 AM EDT) CT PCR NOT DETECTED Not Detect. [facility] Comment:A not detected test result does [...] psychologicalconsequences. NG PCR NOT DETECTED Not Detect. [facility] Comment:A not detected test result does [...] AM EDT 08/29/2024 1:43 PM EDT Narrative [facility] - 08/29/2024 3:42 PM EDT Vaginal us Sandra Portillo MD LAB MICROBIOLOGY - GE NERAL ORDERABLES Final Result [facility] [address] [place] [phone] documented in this encounter Visit Diagnoses Diagnosis Vaginal pain Unspecified symptom associated with female genital organs Vaginal discharge Leukorrhea, not specified as infective documented in this encounter Care Teams Scratch Finisher Relationship Specialty Start Date End Date Mariah Meneses MD [address] [place] [address], [place] [address] PCP - General Family Medicine 07/11/24 documented as of this encounter
== END 2024-08-29 13:42 | disposition home or self-care (01) ==
LOC: HO.HHCLNP 13:41
PROVIDERS: Visit Provider Internal Medicine
DX: R10.2 Pelvic and perineal pain (principal); N89.8 Other specified noninflammatory disorders of vagina
CPT/HCPCS: 81515; 87086; 87491; 87591

== ENCOUNTER 2024-11-05 13:05 | Outpatient (REF) | payer MEDICAID, SELFPAY ==
[2024-11-05 20:52] LABS: Bacterial Vaginosis PCR POSITIVE (Negative); Candida Group PCR DETECTED (Not Detect); Candida glab krusei PCR NOT DETECTED (Not Detect); Trichomonas vaginalis PCR NOT DETECTED (Not Detect)
[2024-11-05 21:50] LABS: CT PCR NOT DETECTED (Not Detect.); NG PCR NOT DETECTED (Not Detect.)
== END 2024-11-05 13:06 | disposition home or self-care (01) ==
LOC: HO.HHCLNP 13:05
PROVIDERS: Visit Provider Family Medicine
DX: R39.9 Unspecified symptoms and signs involving the genitourinary system (principal); N76.0 Acute vaginitis
CPT/HCPCS: 81515; 87086; 87491; 87591

== ENCOUNTER 2024-11-29 11:25 | Outpatient (REF) | payer MEDICAID, OTHER, SELFPAY ==
--- OUTSIDE RECORDS SUMMARY | 2024-11-29 12:22 | XMS_ITS | Clinical Summary ---
Author Organization [employer] Address [address] [place] [address] [address] [place] [address] Care Team Providers Care Insulation Board Back Tender Name Role Phone Mariah Meneses MD Primary Care Provider [phone] Allergies No known active allergies Medications * This document contains information received from the source organization and may not represent a complete record from that organization. baclofen (Lioresal) 10 MG tabletIndicatio ns:Muscle tension pain Take 1 tablet (10 mg) by mouth 3 times daily for 14 days. 42 tablet 5 Active ondansetron (Zofran) 4 MG tabletIndicatio ns:Nausea Take 1 tablet (4 mg) by mouth every 8 (eight) hours if needed for nausea or vomiting for up to 10 doses. 10 tablet 5 Active acetaminophen (Tylenol 8 Hour) 650 MG ER tablet Take 1 tablet (650 mg) by mouth every 8 (eight) hours if needed for mild pain. Do not crush, chew, or split. 40 tablet 1 5 12/06/19 25 Active metroNIDAZOLE (Flagyl) 500 MG tablet Take 1 tablet (500 mg) by mouth 2 times daily for 7 days. 14 tablet 5 11/13/19 25 sulfamethoxazol e-trimethoprim (Bactrim DS) 800-160 MG tablet Take 1 tablet by mouth 2 times daily for 3 days. 6 tablet 5 11/09/19 25 fluconazole (Diflucan) 150 MG tablet Take 1 tablet (150 mg) by mouth 1 (one) time for 1 dose. 1 tablet 5 11/14/19 25 Active Problems Problem Noted Date Diagnosed Date NOEMI (generalized anxiety disorder) 11/21/2024 Current moderate episode of major depressive disorder without prior episode 11/21/2024 Screening examination for STI 07/11/2024 Resolved Problems Problem Noted Date Diagnosed Date Resolved Date Vaginal discharge 08/29/2024 11/05/2024 Assessment & Plan (08/29/2024 1:09 PM EDT): Possible yeast infection I will treat empirically wit clotrimazole cream, patient will be contacted with results Encounters * This document contains information received from the source organization and may not represent a complete record from that organization. Date Type Department Care Team Description 11/29/2024 10:15 AM EDT Office Visit [facility] [address] [place] [phone] Nneka Obregon CNM Breast pain, left (Primary Dx); Screening examination for venereal disease; Intermenstrual bleeding 11/29/2024 Travel 11/23/[address] [address] Mariah Meneses MD Nurse Triage 11/13/[address] [address] Mariah Meneses MD 11/05/2024 11:00 AM EDT Office Visit [facility] [address] [place] [address] Renetta Beatty DO Acute UTI (Primary Dx); Acute vaginitis 11/05/[address] [address] Mariah Meneses MD Nurse Triage 09/26/2024 3:30 PM EDT Office Visit [address] [address] Azul Umanzor NP Muscle tension pain (Primary Dx); Nausea 09/26/2024 Travel 09/25/[address] [address] Azul Umanzor NP CHART PREP 09/24/[address] [address] Mariah Meneses MD Nurse Triage 09/17/2024 2:00 PM EDT Office Visit [facility] [address] [place] [address] Stephanie West Subgingival dental calculus (Primary Dx); Dental plaque 09/10/2024 Travel from Last 3 Months Family History Medical History Relation Name Comments Breast cancer Neg Hx Social History Tobacco Use Types Packs/Day Years [...] 3.2 oz) 11/29/2024 10:58 AM EDT Height 154.5 cm (5' 0.83 ) 11/05/2024 10:19 AM E DT Body Mass Index 28.54 11/05/2024 10:19 AM EDT Plan of Treatment Health Maintenance Due Date Last Done Comments HPV Vaccines (1 - 3-dose series) 10/09/2007 DTaP/Tdap/Td Vaccines (1 - Tdap) 10/09/2011 Hepatitis B Vaccines (1 of 3 - 19+ 3-dose series) 10/09/2011 Pap Smear 2013 Cervical Cancer Screening 2022 HPV/Cotest 2022 COVID-19 Vaccine ( - 2023-2 5 season) 2024 Dental Oral Exam 01/03/2025 07/05/2024 Dental Prophylaxis 01/03/2025 07/05/2024 Influenza Vaccine (#1) 2025 Depression Monitoring 05/24/2025 11/21/2024 , 11/21/2024 Dental X-Ray: Bitewings 07/06/2025 07/05/19 25, 12/21/2023 SDOH Screening 07/09/2025 07/09/2024 Disability Screening 09/26/2025 09/26/2024 Alcohol/Substance Use Screening 11/29/2025 11/29/2024 Family Planning (PISQ) 11/29/2025 11/29/2024 Tobacco Screening 11/29/2025 11/29/2024 Dental X-Ray: Full Mouth 07/06/2027 07/05/2024 Zoster [...] patient's age to complete this topic Meningococcal B Vaccine Aged Out No l onger eligible based on patient's age to complete this topic Meningococcal Vaccine Aged Out No lawanda manish eligible based on patient's age to complete this topic Pneumococcal Vaccine: Pediatrics (0 to 5 Years) and At-Risk Patients (6 to 49) Years Aged Out No longer eligible b ased on patient's age to complete this topic RSV under 20 months Aged Out No longe r eligible based on patient's age to complete this topic Rotavirus Vaccines Aged Out No longer eligible based on patient's age to complete this topic Procedures Procedure Name Priority Date/Time Associated Diagnosis Comments POCT , URINE Routine 11/05/2024 11:10 AM EDT Acute vaginitis CHLAMYDIA/N. GONORRHOEAE RNA, TMA, UROGENITAL Routine 11/05/2024 11:10 AM EDT Acute vaginitis BACTERIAL VAGINOSIS PANEL Routine 11/05/2024 11:10 AM EDT Acute vaginitis CULTURE, URINE, ROUTINE Routine 11/05/2024 10:38 AM EDT Acute vaginitis POCT URINALYSIS DIPSTICK Routine 11/05/2024 10:32 AM EDT Acute vaginitis POCT , URINE Routine 09/26/2024 4:33 PM EDT Nausea CASE PRESENTATION, DETAILED AND EXTENSIVE TREATMENT PLANNING Routine 09/17/2024 2:00 PM EDT ORAL HYGIENE INSTRUCTIONS Routine 09/17/2024 2:00 PM EDT Subgingival dental calculus Dental plaque LL PERIODONTAL SCALING AND ROOT PLANING - 1 TO 3 TEETH PER QUADRANT Routine 09/17/2024 2:00 PM EDT Subgingival dental calculus Dental plaque UL PERIODONTAL SCALING AND ROOT PLANING - 1 TO 3 TEETH PER QUADRANT Routine 09/17/2024 2:00 PM EDT Subgingival dental calculus Dental plaque HEPATITIS C AB W/REFL TO HCV RNA, QN, PCR Routine 07/09/2024 2:36 PM EST Screening examination for STI HIV 1/2 ANTIGEN/ANTIBODY, FOURTH GENERATION W/RFL Routine 07/09/2024 2:36 PM EST Screening examination for STI PROPHYLAXIS - ADULT Routine 07/05/2024 2 :00 PM EST Dental calculus Dental plaque Subgingival dental calculus INTRAORAL - COMPLETE SERIES OF RADIOGRAPHIC IMAGES Routine 07/05/2024 2:00 PM EST PERIODIC ORAL EVALUATION - ESTABLISHED PATIENT Routine 07/05/2024 2:00 PM EST from Last 3 Months or Most Recently Relevant to Health Maintenance Results * (ABNORMAL) Bacterial Vaginosis (11/05/2024 11:10 AM EDT) TRICHOMONAS VAGINALIS DETECTION BY PCR NOT DETECTED Not Detect [facility] BACTERIAL VAGINOSIS DETECTION BY PCR POSITIVE(A) Negative [facility] Comment:The BV organism targ ets [...] GROUP DETECTION BY PCR DETECTED(A) Not Detect [facility] Lida glab krusei PCR NOT DETECTED Not Detect [facility] Swab Vaginal structure / Unknown 11/05/2024 11:10 AM EDT 11/05/2024 1:07 PM EDT us Renetta Beatty DO LAB MICROBIOLOGY - GENERAL O RDERABLES Final Result [facility] [address] [place] [address] [phone] * Chlamydia/N. Gonorrhoeae RNA, TMA, Urogenitial (11/05/2024 11:10 AM EDT) CT PCR NOT DETECTED Not Detect. [facility] Comment:A not detected test result [...] psychologicalconsequences. NG PCR NOT DETECTED Not Detect. [facility] Comment:A not detected test result [...] medical, social or psychologicalconsequences. Swab (Vaginal Swab) 11/05/2024 11:10 AM EDT 11/05/2024 1:07 PM EDT Renetta Beatty DO LAB MICROBIOLOGY - GENERAL O RDERABLES Final Result Performing Organization Address [facility] Co de Phone Number [facility] [address] [place] [phone] * POCT , urine manually resulted (11/05/2024 11:10 AM EDT) Only the most recent of2 resultswithin the time period is included. Preg Test, Ur Negative Negative, Indeterminate, None Detected, Invalid, Specimen unsatisfactory for evaluation, Weakly Positive, 2+ Urine 11/05/2024 11:1 0 AM EDT Renetta Beatty DO POINT OF CARE TEST ENTER/RAMÓN T ORDERABLES Final Result * Culture, Urine, Routine (11/05/2024 10:38 AM EDT) Urine Urine specimen obtained by clean catch procedure / Unknown 11/05/2024 10:38 AM EDT 11/05/2024 1:07 PM EDT Comment:UACC Narrative [facility] - 11/06/2024 8:25 AM EDT Urine Culture No growth. Specimen Source: Urine clean catch Renetta Beatty DO LAB MICROBIOLOGY - GENERAL O RDERABLES Final Result Performing Organization Address [facility] Co de Phone Number [facility] [address] [place] [phone] * (ABNORMAL) POCT urinalysis dipstick manually resulted (11/05/2024 10:32 AM EDT) Color, UA Yellow Clarity, UA Clear Glucose, UA Negative Bilirubin, UA Negative Ketones, UA Negative Spec Grav, UA 1.020 Blood, UA Positive(A) Negative, None Detected Comment:Trace pH, UA 7.0 Protein, UA Negative Urobilinogen, UA 0.2 Leukocytes, UA Trace Negative, Rare, Trace Nitrite, UA Negative Negative, None Detected Appearance, UA OK Urine 11/05/2024 10:3 2 AM EDT Renetta Beatty DO POINT OF CARE TEST ENTER/RAMÓN T ORDERABLES Final Result * Hepatitis C Antibody with Reflex to HCV, RNA, Quantitative, Real-Time PCR (07/09/2024 2:36 PM EST) Hepatitis C Antibody Nonreactive Nonreactive [facility] Comment:Antibodies to HCV no t detected; does not exclude early acuteHCV infection. Blood Venous blood specimen / Unknown 07/09/2024 2:36 PM EST 07/09/2024 4:20 PM EST Mariah Meneses MD LAB BLOOD ORDERABLES Final Res ult Performing Organization Address [facility] Co de Phone Number [facility] [address] [place] [phone] * HIV-1/2 Antigen and Antibodies, Fourth Generation, with Reflexes (07/09/2024 2:36 PM EST) Pathologist [facility] HIV AB/AG Nonreactive Nonreactive [facility] Comment:HIV-1 p24 Ag and/or HIV-1/HIV-2 Ab not detected.A test result that is nonreactive does not exclude thepossibility of exposure to or infection with HIV-1 and/orHIV-2. Nonreactive results in this assay for individualswith prior exposure to HIV-1 and/or HIV-2 may be due toantigen and antibody levels that are below the limit ofdetection of this assay.The [employer] HIV Ag/Ab Combo assay result andsupplemental assay results should be interpreted inconjunction with the patient's clinical presentation,history and other laboratory results. If the results areinconsistent with clinical evidence, additional testing issuggested to confirm the result. Blood Venous blood specimen / Unknown 07/09/2024 2:36 PM EST 07/09/2024 4:20 PM EST Mariah Meneses MD LAB BLOOD ORDERABLES Final Res ult Performing Organization Address City/[facility]/ZIP Co de Phone Number [facility] [address] [place] [address] [phone] from Last 3 Months or Most Recently Relevant to Health Maintenance [place] - [place]SN FULL (MEDICAID) DENTAL-[facility] MEDICAID LIMITED ADULT Care Teams Insulation Board Back Tender Relationship Specialty Start Date End Date Mariah Meneses MD [address] [place] [phone] PCP - General Family Medicine 07/11/24
[2024-11-29 14:02] LABS: HBS Num1 20.55 mIU/mL (0-7.99); HBc Num1 0.09 S/CO (0.00-0.79); HBsAGNum1 0.42 S/CO (0.00-0.99); HIV Num 1 0.06 S/CO (0.00-0.99); Hepatitis B Surface Antigen Negative (Negative); Syphilis Screen Nonreactive (Nonreactive); ~Hepatitis B Surface Antibody REACTIVE (Nonreactive)
== END 2024-11-29 11:26 | disposition home or self-care (01) ==
LOC: HO.HHCL 11:25
PROVIDERS: Visit Provider Advanced Practice Midwife
DX: Z11.4 Encounter for screening for human immunodeficiency virus [HIV] (principal); Z11.59 Encounter for screening for other viral diseases; Z11.3 Encounter for screening for infections with a predominantly sexual mode of transmission; Z11.51 Encounter for screening for human papillomavirus (HPV); N92.3 Ovulation bleeding
CPT/HCPCS: 36415; 86704; 86706; 86780; 87340; 87389; 87626; 88175

== ENCOUNTER 2024-12-03 13:31 | Outpatient (REF) | payer MEDICAID, OTHER, SELFPAY ==
--- OUTSIDE RECORDS SUMMARY | 2024-12-03 14:14 | XMS_ITS | Encounter Summary ---
Author Organization [employer] Address [address] [facility] [address] [place] [address] Care Team Providers Care Portable Track Crew Chief Name Role Phone Mariah Meneses MD Primary Care Provider [phone] Encounter Details Date Type Department Care Team (Latest Contact Info) Description 12/03/2024 Travel Social History Tobacco Use Types Packs/Day [...] as of this encounter Plan of Treatment Not on file documented as of this encounter Visit Diagnoses Not on filedocumented in this encounter Additional Health Concerns Assessment Noted Time PHQ-9 Depression Total Score: 17 025 4:07 PM EDT documented as of this encounter Care Teams Portable Track Crew Chief Relationship Specialty Start Date End Date Mariah Meneses MD [address] [place] [address] PCP - General Family Medicine 07/11/24 documented as of this encounter
[2024-12-03 15:59] LABS: Bacterial Vaginosis PCR NEGATIVE (Negative); Candida Group PCR DETECTED (Not Detect); Candida glab krusei PCR NOT DETECTED (Not Detect); Trichomonas vaginalis PCR NOT DETECTED (Not Detect)
== END 2024-12-03 13:32 | disposition home or self-care (01) ==
LOC: HO.HHCLNP 13:31
PROVIDERS: Visit Provider Family Medicine
DX: N89.8 Other specified noninflammatory disorders of vagina (principal)
CPT/HCPCS: 81515

== ENCOUNTER → 2025-04-01 10:30 | Outpatient (BNV) | payer SELFPAY | PROVIDERS: PCP Advanced Practice Midwife; Visit Provider Radiology Body Imaging | DX: N64.4 Mastodynia (principal) | CPT/HCPCS: 76642; 77062; 77066 ==

== ENCOUNTER 2025-04-01 10:34 | Outpatient (REF) | payer MEDICAID, OTHER, SELFPAY ==
--- NOTE | ~2025-04-01 | MM_ITS ---
EXAMINATION(S): 1. MM DIAGNOSTIC DIGITAL BREAST TOMOSYNTHESIS, BILATERAL 2. TARGETED ULTRASOUND OF THE LEFT BREAST CLINICAL INFORMATION: Focal tenderness and possible small mass in the left breast at the 11:00 COMPARISON: None. This is a baseline study. TECHNIQUE: Digital breast tomosynthesis is performed in both the mediolateral oblique and craniocaudal views along with computer-aided detection (CAD). Synthesized 2D images are generated from the tomosynthesis. Skin BB marker is placed at the location of the palpable concern as indicated by the patient in the upper outer quadrant. FINDINGS: BREAST COMPOSITION: There are scattered areas of fibroglandular density. RIGHT BREAST: No significant masses, suspicious calcifications or other abnormalities are seen. LEFT BREAST: No significant masses, suspicious calcifications or other abnormalities are seen. In particular, no suspicious mammographic findings adjacent of the skin BB marker. Targeted ultrasound of the left breast was performed at the location of the palpable concern and tenderness as indicated by the patient. The survey centered in the upper outer quadrant/axillary tail/lower axilla did not reveal suspicious sonographic findings. Only benign-appearing axillary lymph nodes seen during the survey. MM/MM tomosynthesis diagnostic BI IMPRESSION: RIGHT BREAST: Negative, no mammographic evidence of malignancy. LEFT BREAST: Benign, no evidence of malignancy. Clinical follow-up is recommended independent of imaging findings. ASSESSMENT: BI-RADS: Category 2: Benign RECOMMENDATION: 1. Patient should be managed based on the clinical impression. 2. Otherwise, routine annual screening mammography. Results were provided to the patient at time of visit by the technologist. This patient's information was entered into a reminder system with a target due date for their next mammogram. Electronically signed by: Joellen Fischer MD 04/01/2025 11:23 AM [facility]
== END 2025-04-01 10:35 | disposition home or self-care (01) ==
LOC: HO.MAMMO 10:34
PROVIDERS: PCP Advanced Practice Midwife; Visit Provider Advanced Practice Midwife
DX: N64.4 Mastodynia (principal); N63.11 Unspecified lump in the right breast, upper outer quadrant
CPT/HCPCS: 76642; 77062; 77066

== ENCOUNTER 2025-04-22 18:34 | Outpatient (REF) | payer MEDICAID, OTHER, SELFPAY ==
--- OUTSIDE RECORDS SUMMARY | 2024-11-29 09:15 | XMS_ITS | Encounter Summary ---
Author Organization [facility] Address [address] [address] [address] [place] [address] Care Team Providers Care Professional Security Officer Name Role Phone Mariah Meneses MD Primary Care Provider [phone] Reason for Referral * Imaging (Urgent) - Closed Specialty Diagnoses / Procedures Referred By Contac t Referred To Contact Radiology Diagnoses Intermenstrual bleeding Procedures Us Pelvis complete Dudley Ascencio CNM [address] [place], [place] Phone: tel: fax: [address] [address] Phone: tel: fax: Referral ID Status Reason Start Date Expiration Date Visits Re quested Visits Authorized [id number] Closed 11/29/2024 11/29/2025 1 1 * Imaging (Urgent) - Closed Specialty Diagnoses / Procedures Referred By Contac t Referred To Contact Radiology Diagnoses Intermenstrual bleeding Procedures US Pelvis Transvaginal Dudley Ascencio CNM [address] [place], [place] Phone: tel: fax: [address] [address] Phone: tel: fax: Referral ID Status Reason Start Date Expiration Date Visits Re quested Visits Authorized [id number] Closed 11/29/2024 11/29/2025 1 1 * Imaging (Urgent) - Closed Specialty Diagnoses / Procedures Referred By Contac t Referred To Contact Radiology Diagnoses Breast pain, left Procedures BI Mammogram Diagnostic Tomosynthesis Bilateral Dudley Ascencio CNM [address] [place] [address] Phone: tel: fax: [address] [address] Phone: tel: fax: Referral ID Status Reason Start Date Expiration Date Visits Re quested Visits Authorized [id number] Closed 11/29/2024 11/29/2025 1 1 * Imaging (Urgent) - Closed Specialty Diagnoses / Procedures Referred By Contac t Referred To Contact Radiology Diagnoses Breast pain, left Procedures BI US Breast Limited Left Dudley Ascencio CNM [address] [place] [address] Phone: tel: fax: [address] [address] Phone: tel: fax: Referral ID Status Reason Start Date Expiration Date Visits Re quested Visits Authorized [id number] Closed 11/29/2024 11/29/2025 1 1 Reason for Visit * Reason Comments Breast Problem Encounter Details Date Type Department Care Team (Late st Contact Info) Description 11/29/2024 10:15 AM EDT Office Visit [facility] [address] [place] [address] Dudley Ascencio CNM [address] [place] [address] Breast pain, left (Primary Dx); Screening examination for venereal disease; Intermenstrual bleeding Social History Tobacco Use Types Packs/Day Years Used Date Smoking Tobacco: Never Smokeless Tobacco: Never Tobacco Cessation:Counseling Given: Not Answered Alcohol Use Standard Drinks/Week Comments Never 0 (1 standard drink = 0.6 oz pur e alcohol) Depression Answer Date Recorded Patient Health Questionnaire-9 Score 17 11/21/2024 Patient Health Questionnaire-9 Score 17 11/21/2024 Last PHQ-9: Questionnaire Data Not on file 0 11/21/2024 Housing Stability Answer Date Recorded What is [...] off services in your home? No 06/27/2024 Depression Answer Date Recorded Patient Health Questionnaire-2 Score 6 11/21/2024 Internet Access Answer Date Recorded Internet Access Q1 No 07/09/2024 Internet Access Q2 I do not want or need it 07/2024 Comments No Intention Date Recorded No desire to become (finding) 0 11/29/2024 Sex and Gender Information Value Date Recorded Sex Assigned at Female 12/21/2023 9:03 AM EDT Legal Sex Female 11:31 AM EDT Gender Identity Female 12/21/2023 9:03 AM EDT Sexual Orientation Straight 12/21/2023 9: 03 AM EDT documented as of this encounter Last Filed Vital Signs Vital Sign Reading Time Taken Comments Blood Pressure 108/58 11/29/2024 10:58 AM EDT Pulse 78 11/29/2024 10:58 AM EDT Temperature 36.8 C (98.3 F) 11/29/2024 10:58 AM EDT Respiratory Rate 12 11/29/2024 10:58 AM EDT Oxygen Saturation 99% 11/29/2024 10:58 AM EDT Inhaled Oxygen Concentration - - Weight 68.1 kg (150 lb 3.2 oz) 11/29/2024 10:58 AM EDT Height - - Body Mass Index 28.54 11/05/2024 10:19 AM EDT documented in this encounter Progress Notes * Dudley Ascencio, EDMUND - 11/29/2024 10:15 AM EDT Subjective Patient ID: Yennifer Charles is a 34 y.o. female who presents for breast lump Per triage, left breast lump. She reports left breast lump/pain which has been present for several months, maybe a year. No change in size. No skin changes, no nipple discharge. Treated for bacterial vaginosis last month, Gonorrhea/Chlamydia/trichomonas neg. Reports full resolution of symptoms, but wonders why bacterial vaginosis occurred. Has tubal ligation. Happy with method. Monthly menses x 4-5d. She had two episodes of light intermenstrual bleeding in the past 6 months, most recently last month. 1 AMAB partner x 4m (new since last serum STI labs). Agrees to serum labs today. No pain/bleeding with sex. Discussed pap test. She doesn't think she has had one, and would like this today. Review of Systems Genitourinary: Positive for menstrual problem and vaginal bleeding. Negative for dyspareunia, dysuria, pelvic pain, vaginal discharge and vaginal pain. Objective BP 108/58 (BP Location: Left arm, Patient Position: Sitting, BP Cuff Size: Adult) Pulse 78 Temp98.3 ??F (36.8 ??C) (Oral) Resp 12 Wt 150 lb 3.2 oz (68.1 kg) LMP 11/02/2024 SpO2 99% BMI28.54 kg/m?? Physical Exam Leather Currier present: declined sugar controller. Constitutional: Appearance: Normal appearance. Chest: Breasts: Right: Normal. No swelling, bleeding, inverted nipple, mass, nipple discharge, skin change or tenderness. Left: Tenderness present. No swelling, bleeding, inverted nipple, mass, nipple discharge or skin change. Comments: Focal tenderness of left breast around 10-11 olcock, possible small mass but difficult tofeel Genitourinary: General: Normal vulva. Labia: Right: No rash, tenderness, lesion or injury. Left: No rash, tenderness, lesion or injury. Vagina: Normal. No signs of injury and foreign body. No vaginal discharge, erythema, tenderness, bleeding, lesions or prolapsed vaginal david. Cervix: Friability present. No cervical motion tenderness, discharge, lesion, erythema, cervical bleeding or eversion. Uterus: Normal. Not enlarged and not tender. Adnexa: Right adnexa normal and left adnexa normal. Right: No mass, tenderness or fullness. Left: No mass, tenderness or fullness. Lymphadenopathy: Upper Body: Right upper body: No supraclavicular or axillary adenopathy. Left upper body: No supraclavicular or axillary adenopathy. Neurological: Mental Status: She is alert. Psychiatric: Mood and Affect: Mood normal. Behavior: Behavior normal. Assessment/Plan Diagnoses and all orders for this visit: Breast pain, left - BI US Breast Limited Left; Future - BI Mammogram Diagnostic Tomosynthesis Bilateral; Future Focal tenderness, possible small mass around 10-11 oclock. Diagnostic imaging ordered. Will contactwith results and plan. Screening examination for venereal disease - HIV-1/2 Antigen and Antibodies, Fourth Generation, with Reflexes; Future - Syphilis Screen; Future - Hepatitis B Core Antibody, Total; Future - Hepatitis B Surface Antibody, Qualitative; Future - Hepatitis B surface antigen, EIA; Future Gonorrhea/Chlamydia/trichomonas up to date with current partner. Hep C neg earlier this year. Remainder of serum labs ordered. Intermenstrual bleeding - US Pelvis Transvaginal; Future - Us Pelvis complete; Future Pap and pelvic ultrasound ordered. Will contact with results and plan. Reviewed bacterial vaginosis prevention strategies. Avoid vaginal irritants, avoid scented productsnear vagina. Don't douche. If bacterial vaginosis recurs, may want to consider partner treatment and/or twice weekly MetroGel for Yennifer for prevention. * Juliet Dawson MA - 11/29/2024 10:15 AM EDT Subjective Patient ID: Yennifer Charles is a 34 y.o. female who presents for Breast Problem. HPI Review of Systems Objective Physical Exam Assessment/Plan documented in this encounter Plan of Treatment Upcoming Encounters Date Type Department Care Team (Late st Contact Info) Description 06/14/2025 3:45 PM EST Office Visit [facility] [address] [place] [address] Mariah Meneses MD [address] [place] [address] 07/29/2025 2:30 PM EDT Office Visit [facility] [address] [place] [address] Estelle Egan, OD [address] [place] [address] Scheduled Orders Name Type Priority Associated Diagnoses Orde r Schedule US Pelvis Transvaginal Imaging Urgent Intermenstrual bleeding Expected: 11/29/2024, Expires: 11/29/2025 Us Pelvis complete Imaging Urgent Intermenstrual bleeding Expected: 11/29/2024, Expires: 11/29/2025 documented as of this encounter Procedures Procedure Name Priority Date/Time Associated Diagnosis Comments BI US BREAST LIMITED LEFT Urgent 04/01/2025 11:10 AM EST Breast pain, left BI MAMMOGRAM DIAGNOSTIC TOMOSYNTHESIS BILATERAL Urgent 04/01/2025 10:56 AM EST Breast pain, left PAP SMEAR Routine 11/29/2024 11:43 AM EDT Intermenstrual bleeding SYPHILIS SCREEN Routine 11/29/2024 11:37 AM EDT Screening examination for venereal disease HEPATITIS B SURFACE ANTIGEN, EIA Routine 11/29/2024 11:37 AM EDT Screening examination for venereal disease HEPATITIS B CORE AB TOTAL Routine 11/29/2024 11:37 AM EDT Screening examination for venereal disease HIV 1/2 ANTIGEN/ANTIBODY, FOURTH GENERATION W/RFL Routine 11/29/2024 11:37 AM EDT Screening examination for venereal disease HEPATITIS B SURFACE ANTIBODY, QUALITATIVE Routine 11/29/2024 11:37 AM EDT Screening examination for venereal disease documented in this encounter Results * BI US Breast Limited Left (04/01/2025 11:10 AM EST) Anatomical Region Laterality Modality Breast Left Ultrasound 04/01/2025 11:1 0 AM EST Narrative 04/01/2025 11:26 AM EST [facility] [address] [place] [address] Ultrasound Report Signed Patient: Yennifer Munguia MR#: [id number] : 1990 Acct:[id number] Age/Sex: 34 / F ADM Date: 04/01/25 Loc: HO.MAMMO Attending Dr: Dudley Ascencio CNM Ordering Physician: DUDLEY ASCENCIO CNM Date of Service: 04/01/25 Procedure(s): US Breast LT Limited Mamm Only Accession Number(s): [id number] cc: DUDLEY ASCENCIO CNM Reason for Exam: focal tenderness 11 oclock, ? small mass EXAMINATION(S): 1. MM DIAGNOSTIC DIGITAL BREAST TOMOSYNTHESIS, BILATERAL 2. TARGETED ULTRASOUND OF THE LEFT BREAST CLINICAL INFORMATION: Focal tenderness and possible small mass in the left breast at the 11:00 COMPARISON: None. This is a baseline study. TECHNIQUE: Digital breast tomosynthesis is performed in both the mediolateral oblique and craniocaudal views along with computer-aided detection (CAD). Synthesized 2D images are generated from the tomosynthesis. Skin BB marker is placed at the location of the palpable concern as indicated by the patient in the upper outer quadrant. FINDINGS: BREAST COMPOSITION: There are scattered areas of fibroglandular density. RIGHT BREAST: No significant masses, suspicious calcifications or other abnormalities are seen. LEFT BREAST: No significant masses, suspicious calcifications or other abnormalities are seen. In particular, no suspicious mammographic findings adjacent of the skin BB marker. Targeted ultrasound of the left breast was performed at the location of the palpable concern and tenderness as indicated by the patient. The survey centered in the upper outer quadrant/axillary tail/lower axilla did not reveal suspicious sonographic findings. Only benign-appearing axillary lymph nodes seen during the survey. US/US Breast LT Limited Mamm Only IMPRESSION: RIGHT BREAST: Negative, no mammographic evidence of malignancy. LEFT BREAST: Benign, no evidence of malignancy. Clinical follow-up is recommended independent of imaging findings. ASSESSMENT: BI-RADS: Category 2: Benign RECOMMENDATION: 1. Patient should be managed based on the clinical impression. 2. Otherwise, routine annual screening mammography. Results were provided to the patient at time of visit by the technologist. This patient's information was entered into a reminder system with a target due date for their next mammogram. Electronically signed by: Joellen Fischer MD 04/01/2025 11:23 AM [facility] Dictated By: Joellen Fischer MD Signed By: <Electronically signed by Joellen Fischer MD in OV> 04/01/25 1123 DD/ 1110 TD/TT: 04/01/25 1119 Transit Specialist: Procedure Note Donotuseinterpreter, Image - 04/01/2025 [facility] [address] [place] [address] [place] [address] Ultrasound Report Signed Patient: Federico Munguia#: [id number] : 1990Acct:[id number] Age/Sex: 34 / FADM Date: 04/01/25 Loc: HO.MAMMO Attending Dr: Dudley Ascencio CNM Ordering Physician: DUDLEY ASCENCIO CNM Date of Service: 04/01/25 Procedure(s): US Breast LT Limited Mamm Only Accession Number(s): [id number] cc: DUDLEY ASCENCIO CNM Reason for Exam: focal tenderness 11 oclock, ? small mass EXAMINATION(S): 1. MM DIAGNOSTIC DIGITAL BREAST TOMOSYNTHESIS, BILATERAL 2. TARGETED ULTRASOUND OF THE LEFT BREAST CLINICAL INFORMATION: Focal tenderness and possible small mass in the left breast at the 11:00 COMPARISON: None. This is a baseline study. TECHNIQUE: Digital breast tomosynthesis is performed in both the mediolateral oblique and craniocaudal views along with computer-aided detection (CAD). Synthesized 2D images are generated from the tomosynthesis. Skin BB marker is placed at the location of the palpable concern as indicated by the patient in the upper outer quadrant. FINDINGS: BREAST COMPOSITION: There are scattered areas of fibroglandular density. RIGHT BREAST: No significant masses, suspicious calcifications or other abnormalities are seen. LEFT BREAST: No significant masses, suspicious calcifications or other abnormalities are seen. In particular, no suspicious mammographic findings adjacent of the skin BB marker. Targeted ultrasound of the left breast was performed at the location of the palpable concern and tenderness as indicated by the patient. The survey centered in the upper outer quadrant/axillary tail/lower axilla did not reveal suspicious sonographic findings. Only benign-appearing axillary lymph nodes seen during the survey. US/US Breast LT Limited Mamm Only IMPRESSION: RIGHT BREAST: Negative, no mammographic evidence of malignancy. LEFT BREAST: Benign, no evidence of malignancy. Clinical follow-up is recommended independent of imaging findings. ASSESSMENT: BI-RADS: Category 2: Benign RECOMMENDATION: 1. Patient should be managed based on the clinical impression. 2. Otherwise, routine annual screening mammography. Results were provided to the patient at time of visit by the technologist. This patient's information was entered into a reminder system with a target due date for their next mammogram. Electronically signed by: Joellen Fischer MD 04/01/2025 11:23 AM EST Dictated By: Joellen Fischer MD Signed By: <Electronically signed by Joellen Fischer MD in OV> 04/01/25 1123 DD/ 1110 TD/TT: 04/01/25 1119 Transit Specialist: us Dudley Ascencio CNM IMG US PROCEDURES Final R esult * BI Mammogram Diagnostic Tomosynthesis Bilateral (04/01/2025 10:56 AM EST) Anatomical Region Laterality Modality Breast Bilateral Mammography 04/01/2025 10:5 6 AM EST Narrative 04/01/2025 11:26 AM EST [facility] [place] [address] Mammography Report Signed Patient: Yennifer Munguia MR#: [id number] : 1990 Acct:[id number] Age/Sex: 34 / F ADM Date: 04/01/25 Loc: HO.MAMMO Attending Dr: Dudley Ascencio CNM Ordering Physician: DUDLEY ASCENCIO CNM Results: 2 Benign Date of Service: 04/01/25 Follow Up: 1 Year From [facility] Mammogram Procedure(s): MM tomosynthesis diagnostic BI Accession Number(s): [id number] cc: DUDLEY ASCENCIO CNM Reason For Exam: focal tenderness 11 oclock, ? small mass left breast EXAMINATION(S): 1. MM DIAGNOSTIC DIGITAL BREAST TOMOSYNTHESIS, BILATERAL 2. TARGETED ULTRASOUND OF THE LEFT BREAST CLINICAL INFORMATION: Focal tenderness and possible small mass in the left breast at the 11:00 COMPARISON: None. This is a baseline study. TECHNIQUE: Digital breast tomosynthesis is performed in both the mediolateral oblique and craniocaudal views along with computer-aided detection (CAD). Synthesized 2D images are generated from the tomosynthesis. Skin BB marker is placed at the location of the palpable concern as indicated by the patient in the upper outer quadrant. FINDINGS: BREAST COMPOSITION: There are scattered areas of fibroglandular density. RIGHT BREAST: No significant masses, suspicious calcifications or other abnormalities are seen. LEFT BREAST: No significant masses, suspicious calcifications or other abnormalities are seen. In particular, no suspicious mammographic findings adjacent of the skin BB marker. Targeted ultrasound of the left breast was performed at the location of the palpable concern and tenderness as indicated by the patient. The survey centered in the upper outer quadrant/axillary tail/lower axilla did not reveal suspicious sonographic findings. Only benign-appearing axillary lymph nodes seen during the survey. MM/MM tomosynthesis diagnostic BI IMPRESSION: RIGHT BREAST: Negative, no mammographic evidence of malignancy. LEFT BREAST: Benign, no evidence of malignancy. Clinical follow-up is recommended independent of imaging findings. ASSESSMENT: BI-RADS: Category 2: Benign RECOMMENDATION: 1. Patient should be managed based on the clinical impression. 2. Otherwise, routine annual screening mammography. Results were provided to the patient at time of visit by the technologist. This patient's information was entered into a reminder system with a target due date for their next mammogram. Electronically signed by: Joellen Fischer MD 04/01/2025 11:23 AM EST Dictated By: Joellen Fischer MD Signed By: <Electronically signed by Joellen Fischer MD in OV> 04/01/25 1123 DD/ 1056 TD/TT: 04/01/25 1057 Transit Specialist: Procedure Note Donotuseinterpreter, Image - 04/01/2025 [facility] [address] [place], [place] [address] Mammography Report Signed Patient: Federico Munguia#: [id number] : 1990Acct:[id number] Age/Sex: 34 / FADM Date: 04/01/25 Loc: HO.MAMMO Attending Dr: Dudley Ascencio CNM Ordering Physician: DUDLEY ASCENCIOesults: 2 Benign Date of Service: 04/01/25Follow Up: 1 Year From [facility] Mammogram Procedure(s): MM tomosynthesis diagnostic BI Accession Number(s): [id number] cc: DUDLEY ASCENCIO CNM Reason For Exam: focal tenderness 11 oclock, ? small mass left breast EXAMINATION(S): 1. MM DIAGNOSTIC DIGITAL BREAST TOMOSYNTHESIS, BILATERAL 2. TARGETED ULTRASOUND OF THE LEFT BREAST CLINICAL INFORMATION: Focal tenderness and possible small mass in the left breast at the 11:00 COMPARISON: None. This is a baseline study. TECHNIQUE: Digital breast tomosynthesis is performed in both the mediolateral oblique and craniocaudal views along with computer-aided detection (CAD). Synthesized 2D images are generated from the tomosynthesis. Skin BB marker is placed at the location of the palpable concern as indicated by the patient in the upper outer quadrant. FINDINGS: BREAST COMPOSITION: There are scattered areas of fibroglandular density. RIGHT BREAST: No significant masses, suspicious calcifications or other abnormalities are seen. LEFT BREAST: No significant masses, suspicious calcifications or other abnormalities are seen. In particular, no suspicious mammographic findings adjacent of the skin BB marker. Targeted ultrasound of the left breast was performed at the location of the palpable concern and tenderness as indicated by the patient. The survey centered in the upper outer quadrant/axillary tail/lower axilla did not reveal suspicious sonographic findings. Only benign-appearing axillary lymph nodes seen during the survey. MM/MM tomosynthesis diagnostic BI IMPRESSION: RIGHT BREAST: Negative, no mammographic evidence of malignancy. LEFT BREAST: Benign, no evidence of malignancy. Clinical follow-up is recommended independent of imaging findings. ASSESSMENT: BI-RADS: Category 2: Benign RECOMMENDATION: 1. Patient should be managed based on the clinical impression. 2. Otherwise, routine annual screening mammography. Results were provided to the patient at time of visit by the technologist. This patient's information was entered into a reminder system with a target due date for their next mammogram. Electronically signed by: Joellen Fischer MD 04/01/2025 11:23 AM EST Dictated By: Joellen Fischer MD Signed By: <Electronically signed by Joellen Fischer MD in OV> 04/01/25 1123 DD/ 1056 TD/TT: 04/01/25 1057 Transit Specialist: us Dudley Ascencio CNM IMG BI PROCEDURES Final R esult * Pap Smear (11/29/2024 11:43 AM EDT) Swab Cervix uteri structure / Unknown 11/29/2024 11:43 AM EDT 12/03/2024 8:00 AM EDT [facility] - 12/11/2024 7:49 AM EDT ----- ------- Name: Yennifer Munguia Age/Sex: 34/F : 1990 Unit#: [id number] Attend Dr: DUDLEY ASCENCIO CNM Re11/29/24 Status: DEP REF Location: [facility] Disch: ----- ------- SPEC : [id number] RECD: 12/03/24 STATUS: PATRICIA WESLEY NUM: [id number] WILMAN: 11/29/24-1143 [facility] DR: DUDLEY ASCENCIO CNM ENTERED: 12/03/24 SP TYPE: Pap Smr OTHR DR: [facility] ORDERED: Pap Smear Interpretation Satisfactory for evaluation. Negative for intraepithelial lesion or malignancy. Fungal organisms consistent with Lida species. Moderate inflammation. HPV High Risk: Negative HPV Genotyping 16: Negative HPV Genotyping 18: Negative Clinical Information LMP: 11/02/2024 Previous PAP test: Unknown date/findings Other history: Intermenstrual bleeding Material Received ThinPrep-Cervical PAP Disclaimer As of February 29, 2024, the technical services to include automated prescreening performed by the ThinPrep Imaging System, PAP screening and HPV testing will be performed at [facility] (CLIA #[id number]), [address] [place] [address]. Testing for HPV was performed using the Deidra LUIS 6800 system. The presence of HPV in the female genital tract is associated with a number of diseases, including cervical carcinoma. The HPV DNA high risk pool tests for HPV 31, 33, 35, 39, 45, 51, 52, 56, 58, 59, 66 and 68. The testing for HPV 16 and 18 genotypes has also been performed. A positive result indicates detection of nucleic acid sequences from one or more subtypes, whereas a negative result indicates such sequences were not detected. All professional services are performed by [facility] ([address] [place] [address]; ; CLIA #[id number]). The PAP Test is a screening procedure with the inherent possibility of both false negative and false positive results. Results should be interpreted in the context of historic and current clinical findings. Reliability of the PAP Test is enhanced by performing the test on a regular repetitive basis. CONTINUED ON NEXT PAGE ----- ------- Name: Yennifer Munguia Age/Sex: 34/F : 1990 Unit#: [id number] Attend Dr: DUDLEY ASCENCIO CNM Re11/29/24 Status: DEP REF Location: [facility] Disch: ----- ------- SPEC : [id number] RECD: 12/03/24 STATUS: PATRICIA OLSON NUM: [id number] WILMAN: 11/29/24-1143 [facility] DR: DUDLEY ASCENCIO CNM ENTERED: 12/03/24 SP TYPE: Pap Smr OTHR DR: [facility] ORDERED: Pap Smear Copies To: [facility] [address] [place] [address] DUDLEY ASCENCIO CNM [address] [place] [address] ----- ------- Signed (signature on file) CARRIE Helms (ASC) 12/11/24 0749 ----- ------- END OF REPORT Dudley SALAS [facility] CYTOLOGY ORDERABLES F inal Result Performing Organization Address [facility]/ZIP Co de Phone Number [facility] [address] [place] [address] [phone] * Hepatitis B surface antigen, EIA (11/29/2024 11:37 AM EDT) Hepatitis B Surface Ag Negative Negative [facility] Blood Venous blood specimen / Unknown 11/29/2024 11:37 AM EDT 11/29/2024 1:06 PM EDT Dudley [facility] BLOOD ORDERABLES Dania l Result [facility] [address] [place] [phone] * Hepatitis B Surface Antibody, Qualitative (11/29/2024 11:37 AM EDT) ~Hepatitis B Surface Antibody REACTIVE Nonreactive [facility] Comment:REACTIVE: > 11.99 mI U/mL Blood Venous blood specimen / Unknown 11/29/2024 11:37 AM EDT 11/29/2024 1:06 PM EDT [facility] ORDERABLES Dania l Result Performing Organization Address [facility] Co de Phone Number [facility] [address] [place] [phone] * Hepatitis B Core Antibody, Total (11/29/2024 11:37 AM EDT) Pathologist [facility] Hepatitis B Core Antibody Nonreactive Nonreactive [facility] Blood Venous blood specimen / Unknown 11/29/2024 11:37 AM EDT 11/29/2024 1:06 PM EDT [facility] BLOOD ORDERABLES Dania l Result Performing Organization Address [facility] Co de Phone Number [facility] [address] [place] [phone] * Syphilis Screen (11/29/2024 11:37 AM EDT) Pathologist [facility] Syphilis Screen Nonreactive Nonreactive [facility] Blood Venous blood specimen / Unknown 11/29/2024 11:37 AM EDT 11/29/2024 1:06 PM EDT [facility] BLOOD ORDERABLES Dania l Result Performing Organization Address [facility] Co de Phone Number [facility] [address] [place] [phone] * HIV-1/2 Antigen and Antibodies, Fourth Generation, with Reflexes (11/29/2024 11:37 AM EDT) HIV AB/AG Nonreactive Nonreactive [facility] Comment:HIV-1 p24 Ag and/or HIV-1/HIV-2 Ab not detected.A test result that is nonreactive does not exclude thepossibility of exposure to or infection with HIV-1 and/orHIV-2. Nonreactive results in this assay for individualswith prior exposure to HIV-1 and/or HIV-2 may be due toantigen and antibody levels that are below the limit ofdetection of this assay.[employer] HIV Ag/Ab Combo assay result andsupplemental assay results should be interpreted inconjunction with the patient's clinical presentation,history and other laboratory results. If the results areinconsistent with clinical evidence, additional testing issuggested to confirm the result. Blood Venous blood specimen / Unknown 11/29/2024 11:37 AM EDT 11/29/2024 1:06 PM EDT us Dudley [facility] LAB BLOOD ORDERABLES Dania chisholm Result [facility] [address] [place] [address] [phone] documented in this encounter Visit Diagnoses Diagnosis Breast pain, left- Primary Screening examination for venereal disease Intermenstrual bleeding Metrorrhagia documented in this encounter Additional Health Concerns Assessment Noted Time PHQ-9 Depression Total Score: 17 025 4:07 PM EDT documented as of this encounter Care Teams Professional Security Officer Relationship Specialty Start Date End Date Mariah Meneses MD [address] [place] [address] PCP - General Family Medicine 07/11/24 documented as of this encounter
--- OUTSIDE RECORDS SUMMARY | 2025-04-20 11:20 | XMS_ITS | Encounter Summary ---
Author Organization [employer] Address [address] [facility] 7[address] [place] [address] Care Team Providers Care Fire Medic Name Role Phone Mariah Meneses MD Primary Care Provider [phone] Encounter Details Date Type Department Care Team ([facility] st Contact Info) Description 04/20/2025 11:20 AM EST Office Visit [facility] [address] [place], [place] [phone] Arjun Akers MD [address] [place] [address] Vaginal candidiasis (Primary Dx) Social History Tobacco Use Types [...] Sign Reading Time Taken Comments Blood Pressure 118/79 04/20/2025 10:52 AM EST Pulse 68 04/20/2025 10:52 AM EST Temperature 36.1 C (96.9 F) 04/20/2025 10:52 AM EST Respiratory Rate 16 04/20/2025 10:52 AM EST Oxygen Saturation - - Inhaled Oxygen Concentration - - Weight 67.6 kg (149 lb) 04/20/2025 10:52 AM EST Height - - Body Mass Index 28.31 03/29/2025 9:21 AM EST documented in this encounter Progress Notes * Arjun Akers MD - 04/20/2025 11:20 AM EST Subjective History was provided by the patient. Yennifer Charles is a 34 y.o. female who presents for evaluation of 2-week duration of suprapubic discomfort and foul-smelling vaginal thick white discharge. Denies dysuria or hematuria. Denies urinary frequency, urgency, or incontinence. She is currently on her period. Denies F/C/N/V/D. Denies BRBPR ormelena. History of BTL. Denies any other abdominal or pelvic surgeries. History of vaginal births. Objective Vitals: 04/20/25 1052 BP: 118/79 BP Location: Left arm Patient Position: Sitting BP Cuff Size: Adult Pulse: 68 Resp: 16 Temp: 96.9 ??F (36.1 ??C) TempSrc: Temporal Weight: 149 lb (67.6 kg) Physical Exam Vitals reviewed. Constitutional: General: She is not in acute distress. Appearance: Normal appearance. She is not ill-appearing, toxic-appearing or diaphoretic. HENT: Head: Normocephalic and atraumatic. Right Ear: External ear normal. Left Ear: External ear normal. Nose: Nose normal. Mouth/Throat: Mouth: Mucous membranes are moist. Pharynx: Oropharynx is clear. Eyes: Extraocular Movements: Extraocular movements intact. Conjunctiva/sclera: Conjunctivae normal. Cardiovascular: Rate and Rhythm: Normal rate and regular rhythm. Heart sounds: Normal heart sounds. Pulmonary: Effort: Pulmonary effort is normal. No respiratory distress. Breath sounds: Normal breath sounds. No wheezing, rhonchi or rales. Chest: Chest wall: No tenderness. Abdominal: General: Abdomen is flat. Bowel sounds are normal. There is no distension. Palpations: Abdomen is soft. There is no mass. Tenderness: There is no abdominal tenderness. There is no right CVA tenderness, left CVA tenderness, guarding or rebound. Hernia: No hernia is present. Genitourinary: Comments: Wet mount: Hyphae present; negative Clue cells or Trich; numerous RBC's Musculoskeletal: General: Normal range of motion. Cervical back: Neck supple. Skin: General: Skin is warm and dry. Neurological: General: No focal deficit present. Mental Status: She is alert and oriented to person, place, and time. Psychiatric: Mood and Affect: Mood normal. Behavior: Behavior normal. Diagnoses and all orders for this visit: Vaginal candidiasis (Primary) - POCT Urinalysis - fluconazole (Diflucan) 150 MG tablet; Take 1 tablet (150 mg) by mouth 1 (one) time per week for 14 days. Take the second dose 1 week after if still symptomatic. - Bacterial Vaginosis Panel Patient with a clinical presentation of vaginal Candidiasis Denies recent antibiotic use, but admits to douching with soap; advised to stop No clinical evidence of acute abdomen POC UA positive for blood only (currently on her period) Wet mount showing hyphae with numerous RBC's Encouraged probiotic use Will treat with Fluconazole PO (patient prefers over topical suppository) Vaginal swab sent out for further evaluation Advised to contact the clinic if no improvement of symptoms Indications for UC/ER use reviewed documented in this encounter Miscellaneous Notes * Addendum Note - Sloane Lobato MA - 04/20/2025 11:20 AM ESTAddended by: SLOANE LOBATO on: 04/20/2025 11:48 AM Modules accepted: Orders documented in this encounter Plan of Treatment Upcoming Encounters Date Type Department Care Team (Late st Contact Info) Description 06/14/2025 3:45 PM EST Office Visit [facility] MEDIC[facility] [address] [place] [address] Mariah Meneses MD [address] [place] [address] 07/29/2025 2:30 PM EDT Office Visit [facility] OPTOMETRY [address] [place] [address] Jignesh, Estelle, OD [address] [place] [address] Scheduled Orders Name Type Priority Associated Diagnoses Orde r Schedule Bacterial Vaginosis Panel Microbiology Routine Vaginal candidiasis Ordered: 04/20/2025 Chlamydia/N. Gonorrhoeae RNA, TMA, Vaginal Microbiology Routine Vaginal candidiasis Ordered: 04/20/2025 documented as of this encounter Procedures Procedure Name Priority Date/Time Associated Diagnosis Comments POCT URINALYSIS DIPSTICK Routine 04/20/2025 11:30 AM EST Vaginal candidiasis documented in this encounter Results * (ABNORMAL) POCT Urinalysis (04/20/2025 11:30 AM EST) Color, UA Yellow Clarity, UA Clear Glucose, UA Negative Bilirubin, UA Negative Ketones, UA Negative Spec Grav, UA 1.020 Blood, UA Positive(A) Negative, None Detected Comment:small pH, UA 7.0 Protein, UA Negative Urobilinogen, UA 0.2 Leukocytes, UA Negative Negative, Rare, Trace, 1+ (17), 2+ (35), 3+ (70), Trace (15) Nitrite, UA Negative Negative, None Detected Appearance, UA clear QC Media Lot # [id number] Lot# Expiration Date Urine (Urine, Random) 04/20/2025 11:30 AM EST Arjun Akers MD POINT OF CARE TEST ENTER/EDIT OR DERABLES Final Result documented in this encounter Visit Diagnoses Diagnosis Vaginal candidiasis- Primary Candidiasis of vulva and vagina documented in this encounter Additional Health Concerns Assessment Noted Time PHQ-9 Depression Total Score: 17 07/ 025 4:07 PM EDT documented as of this encounter Care Teams Fire Medic Relationship Specialty Start Date End Date Mariah Meneses MD [address] [place] [phone] PCP - General Family Medicine 07/11/24 documented as of this encounter
--- OUTSIDE RECORDS SUMMARY | 2025-04-22 22:46 | XMS_ITS | Encounter Summary ---
Author Organization [employer] Address [address] [facility] 7t [place] [address] Care Team Providers Care Precipitate Washer Name Role Phone Mariah Meneses MD Primary Care Provider [phone] Encounter Details Date Type Department Care Team (Latest Contact Info) Description 04/20/2025 Travel Social History Tobacco Use Types Packs/Day [...] 9:03 AM EDT Sexual Orientation Straight 12/21/2023 9 :03 AM EDT documented as of this encounter Plan of Treatment Upcoming Encounters Date Type Department Care Team (Late st Contact Info) Description 06/14/2025 3:45 PM EST Office Visit [facility] [address] [place] [address] Mariah Meneses MD [address] [place] [address] 07/29/2025 2:30 PM EDT Office Visit [facility] [address] [place] [address] Jignesh, Estelle, OD [address] [place] [address] documented as of this encounter Visit Diagnoses Not on filedocumented in this encounter Additional Health Concerns Assessment Noted Time PHQ-9 Depression Total Score: 17 025 4:07 PM EDT documented as of this encounter Care Teams Precipitate Washer Relationship Specialty Start Date End Date Mariah Meneses MD [address] [place] [address] PCP - General Family Medicine 07/11/24 documented as of this encounter
--- OUTSIDE RECORDS SUMMARY | 2025-04-22 22:46 | XMS_ITS | Encounter Summary ---
Author Organization [employer] Address [address] [place] [address] 7 [place] [address] Care Team Providers Care Service Desk Associate Name Role Phone Mariah Meneses MD Primary Care Provider [phone] Reason for Visit * Reason Onset Date Comments Record Request 04/18/2025 Encounter Details Date Type Department Care Team ([facility] Contact Info) Description 04/18/2025 Telephone [facility] [address] [place], [place] [phone] Mariah Meneses MD [address] [place] [address] Record Request Social History Tobacco Use Types Packs/Day Years [...] AM EDT documented as of this encounter Miscellaneous Notes * Telephone Encounter - Juliet Dawson [place] - 04/18/2025 1:25 PM EST Roney is requesting notes from [facility] for Pelvic Ultrasound Result. documented in this encounter Plan of Treatment Upcoming Encounters Date Type Department Care Team (Late st Contact Info) Description 06/14/2025 3:45 PM EST Office Visit [facility] [address] [place] [address] Mariah Meneses MD [address] [place] [address] 07/29/2025 2:30 PM EDT Office Visit [facility] [address] [place] [address] Jignesh, Estelle, OD [address] [place] [address] documented as of this encounter Visit Diagnoses Not on filedocumented in this encounter Additional Health Concerns Assessment Noted Time PHQ-9 Depression Total Score: 17 025 4:07 PM EDT documented as of this encounter Care Teams Service Desk Associate Relationship Specialty Start Date End Date Mariah Meneses MD [address] [place] [address] PCP - General Family Medicine 07/11/24 documented as of this encounter
--- OUTSIDE RECORDS SUMMARY | 2025-04-22 22:47 | XMS_ITS | Clinical Summary ---
Author Organization [employer] Address [address] [place] [address] 7 [place] [address] Care Team Providers Care Fur Matcher Name Role Phone Mariah Meneses MD Primary Care Provider Allergies No known active allergies Medications * This document contains information received from the source organization and may not represent a complete record from that organization. baclofen (Lioresal) 10 MG tabletIndicatio ns:Muscle tension pain Take 1 tablet (10 mg) by mouth 3 times daily for 14 days. 42 tablet 09/27/19 25 Active metroNIDAZOLE (Metrogel) 0.75 % vaginal gel Insert into the vagina 2 (two) times a week. 70 g 5 12/04/19 25 026 Active Sodium Fluoride 5000 Plus 1.1 % cream APPLY TOPICALLY TO TEETH TWICE DAILY 07/05/19 25 Active fluconazole (Diflucan) 150 MG tablet Take 1 tablet by mouth Once per day. 12/08/19 25 Active ondansetron (Zofran) 4 MG tabletIndicatio ns:Nausea,Chron ic migraine with aura and with status migrainosus, not intractable Take 1 tablet (4 mg) by mouth every 8 (eight) hours if needed for nausea or vomiting. 10 tablet 3 03/29/20 25 Active SUMAtriptan (Imitrex) 50 MG tabletIndicatio ns:Nausea,Chron ic migraine with aura and with status migrainosus, not intractable Take 1 tablet (50 mg) by mouth 1 (one) time if needed for migraine (Use one per week for severe headaches- 1 dose and repeat with one more dose 1 hour if the first is ineffective) . May repeat dose once in 2 hours if no relief. Do not exceed 2 doses in 24 hours. 9 tablet 03/29/20 25 Active amitriptyline (Elavil) 10 MG tabletIndicatio ns:Nausea,Chron ic migraine with aura and with status migrainosus, not intractable Take 1 tablet (10 mg) by mouth at bedtime. 30 tablet 3 03/29/20 25 Active ibuprofen 600 MG tabletIndicatio ns:Nausea,Chron ic migraine with aura and with status migrainosus, not intractable Take 1 tablet (600 mg) by mouth every 8 (eight) hours if needed for mild pain. 90 tablet 3 03/29/20 25 Active fluconazole (Diflucan) 150 MG tabletIndicatio ns:Vulvovaginal Candidiasis Take 1 tablet (150 mg) by mouth 1 (one) time per week for 14 days. Take the second dose 1 week after if still symptomatic. 2 tablet 04/20/20 25 025 Active ondansetron (Zofran) 4 MG tabletIndicatio ns:Nausea Take 1 tablet (4 mg) by mouth every 8 (eight) hours if needed for nausea or vomiting for up to 10 doses. 10 tablet 09/27/19 25 025 Discontinued(Re order (will not trigger notification to Pharmacy)) Hospital, Clinic, or Other Facility Administered Medication Ordered Dose Route Frequency Start Date End Date Status ketorolac (Toradol) injection 30 mgIndications:Nausea,Chroni c migraine with aura and with status migrainosus, not intractable 30 mg IM Once 03/29/2025 03/29/2025 Ended Active Problems Problem Noted Date Diagnosed Date Intractable chronic migraine with aura with status migrainosus 03/29/2025 Assessment & Plan (03/29/2025 11:20 AM EST): Will order a CT scan given the history of chronic migraines and new exacerbation to her condition Sumatriptain to be used to abort severe headaches, educated on the use- no more than 2 tablets in 24 hours and no more than 9 in 1 month, she verbalized understanding Ketorolac IM will be administered today by one of the nurses Ibuprofen to be used as needed per her agreement with the use of this medication. Informed to ensure she does not use more than 2-3 doses per week as this can cause rebound headaches, in agreement. Amitriptyline to be used daily. Encouraged to report headache that is not alleviated with the above therapies, new onset of vomiting, increase in vision changes, or an intolerable headache. She is welcomed to return as needed Nausea 03/29/2025 Overview (03/29/2025): -DDx: appendicitis, diverticulitis, ectopic , inflammatory bowel or gastro enteritis -negative POCT preganncy test today -PE not suggestive of Assessment & Plan (03/29/2025 11:20 AM EST): Will order Zofran Orders: ondansetron (Zofran) 4 MG tablet; Take 1 tablet (4 mg) by mouth every 8 (eight) hours if needed for nausea or vomiting. SUMAtriptan (Imitrex) 50 MG tablet; Take 1 tablet (50 mg) by mouth 1 (one) time if needed for migraine (Use one per week for severe headaches- 1 dose and repeat with one more dose 1 hour if the first is ineffective). May repeat dose once in 2 hours if no relief. Do not exceed 2 doses in 24 hours. amitriptyline (Elavil) 10 MG tablet; Take 1 tablet (10 mg) by mouth at bedtime. ketorolac (Toradol) injection 30 mg ibuprofen 600 MG tablet; Take 1 tablet (600 mg) by mouth every 8 (eight) hours if needed for mild pain. Pelvic pain 02/15/2025 NOEMI (generalized anxiety disorder) 11/21/2024 Current moderate episode of major depressive disorder without prior episode ([facility]) 11/21/2024 Screening examination for STI 07/11/2024 Resolved Problems Problem Noted Date Diagnosed Date Resolved Date Vaginal discharge 08/29/2024 11/05/2024 Assessment & Plan (08/29/2024 1:09 PM EDT): Possible yeast infection I will treat empirically wit clotrimazole cream, patient will be contacted with results Encounters Date Type Department Care Team Description 04/20/2025 11:20 AM EST Office Visit [facility] WALK-IN [address] [address] Arjun Akers MD Vaginal candidiasis (Primary Dx) 04/20/2025 Travel 04/18/[address] [address] Mariah Meneses MD Record Request 04/02/2025 Travel 04/01/2025 Orders Only [address] [address] Dudley Ascencio CNM Breast pain, left (Primary Dx) 03/29/2025 10:00 AM EST Office Visit [address] [address] Manuela Ramirez NP Chronic migraine with aura and with status migrainosus, not intractable (Primary Dx); Nausea; Intractable chronic migraine with aura with status migrainosus 03/29/2025 Travel 02/15/2025 11:15 AM EDT Telemedicine [address] [address] Mariah Meneses MD Pelvic pain (Primary Dx) 02/15/2025 Travel 02/14/[address] [address] Mariah Meneses MD Chart Prep 02/07/2025 Patient Outreach [address] [address] Mariah Meneses MD Pre-visit Planning ([place] screening completed on 07/09/2024) from Last 3 Months Family History Medical [...] 16 04/20/2025 10:52 AM EST Oxygen Saturation 99% 12/03/2024 10:46 AM EDT Inhaled Oxygen Concentration - - Weight 67.6 kg (149 lb) 04/20/2025 10:52 AM EST Height 154.5 cm (5' 0.83 ) 03/29/2025 9:21 AM ES T Body Mass Index 28.31 03/29/2025 9:21 AM EST Plan of Treatment Upcoming Encounters Date Type Department Care Team (Late st Contact Info) Description 06/14/2025 3:45 PM EST Office Visit [facility]ICINE [address] [place] [address] Mariah Meneses MD [address] [place], [place] [phone] 07/29/2025 2:30 PM EDT Office Visit [facility] OPTOMETRY [address] [place], [place] [phone] Estelle Egan, OD [address] [place], [place] [phone] Health Maintenance Due Date Last Done Comments HPV Vaccines (1 - 3-dose series) 10/09/2007 DTaP/Tdap/Td Vaccines (1 - Tdap) 10/09/2011 Hepatitis B Vaccines (1 of 3 - 19+ 3-dose series) 10/09/2011 Dental Oral Exam 01/03/2025 07/05/2024 Dental Prophylaxis 01/03/2025 07/05/2024 COVID-19 Vaccine ( - 2024-2 6 season) 2025 Influenza Vaccine (#1) 2025 Depression Monitoring 05/24/2025 11/21/2024 , 11/21/2024 Dental X-Ray: Bitewings 07/06/2025 07/05/19 25, 12/21/2023 SDOH Screening 07/09/2025 07/09/2024 Disability Screening 09/26/2025 09/26/2024 Alcohol/Substance Use Screening 11/29/2025 11/29/2024 Family Planning (PISQ) 11/29/2025 11/29/2024 Tobacco Screening 03/29/2026 03/29/2025 Dental X-Ray: Full Mouth 07/06/2027 07/05/2024 Cervical Cancer Screening 11/29/2029 HPV/Cotest 11/29/2029 11/29/2024 Pap Smear 11/29/2029 11/29/2024 Zoster Vaccines (1 of 2) 2042 RSV Patients and Patients Aged 60 years or older (1 - 1-dose 75+ series) 10/09/2067 Hepatitis C Screening Completed 07/09/2024 HIV Screening Completed 11/29/2024, 07/09/2024 HIB Vaccines Aged Out No longer [...] Routine 04/20/2025 11:30 AM EST Vaginal candidiasis BI US BREAST LIMITED LEFT Urgent 04/01/2025 11:10 AM EST Breast pain, left BI MAMMOGRAM DIAGNOSTIC TOMOSYNTHESIS BILATERAL Urgent 04/01/2025 10:56 AM EST Breast pain, left HPV DNA, LOW/HIGH RISK Routine 11:43 AM EDT PAP SMEAR Routine 11/29/2024 11:43 AM EDT Intermenstrual bleeding HIV 1/2 ANTIGEN/ANTIBODY, FOURTH GENERATION W/RFL Routine 11/29/2024 11:37 AM EDT Screening examination for venereal disease HEPATITIS C AB W/REFL TO HCV RNA, [...] Relevant to Health Maintenance Results * (ABNORMAL) POCT Urinalysis (04/20/2025 11:30 [...] Media Lot # [id number] Lot# Expiration Date 56 Urine (Urine, Random) 04/20/2025 11:30 AM EST Arjun Akers MD POINT OF CARE TEST ENTER/EDIT OR DERABLES Final Result * BI US Breast Limited Left (04/01/2025 11:10 AM EST) Anatomical Region Laterality Modality Breast Left Ultrasound 04/01/2025 11:1 0 AM EST Narrative 04/01/2025 11:26 AM EST [facility] [address] [place] [address] Ultrasound Report Signed Patient: Yennifer Munguia MR#: [id number] : 1990 Acct:[id number] Age/Sex: 34 / F ADM Date: 04/01/25 Loc: HO.MAMMO Attending Dr: Dudley Ascencio CNM Ordering Physician: DUDLEY ASCENCIO CNM Date of Service: 04/01/25 Procedure(s): US Breast LT Limited Mamm Only Accession Number(s): [id number] cc: DUDLEY ASCENCIO CNM Reason for Exam: [...] by: Joellen Fischer MD 04/01/2025 11:23 AM [facility] Dictated By: Joellen Fischer MD Signed By: <Electronically signed by Joellen Fischer MD in OV> 04/01/25 1123 DD/ 1110 TD/TT: 04/01/25 1119 Climatologist: Procedure Note Donotuseinterpreter, Image - 04/01/2025 [facility] [address] [place] [address] Ultrasound Report Signed Patient: Federico Munguia#: [id number] : 1990Acct:[id number] Age/Sex: 34 / FADM Date: 04/01/25 Loc: HO.MAMMO Attending Dr: Dudley Ascencio CNM Ordering Physician: DUDLEY ASCENCIO CNM Date of Service: 04/01/25 Procedure(s): US Breast LT Limited Mamm Only Accession Number(s): [id number] cc: DUDLEY ASCENCIO CNM Reason for Exam: [...] by: Joellen Fischer MD 04/01/2025 11:23 AM [facility] Dictated By: Joellen Fischer MD Signed By: <Electronically signed by Joellen Fischer MD in OV> 04/01/25 1123 DD/ 1110 TD/TT: 04/01/25 1119 Climatologist: us Dudley Ascencio CNM IMG US PROCEDURES Final R esult * BI Mammogram Diagnostic Tomosynthesis Bilateral (04/01/2025 10:56 AM EST) Anatomical Region Laterality Modality Breast Bilateral Mammography 04/01/2025 10:5 6 AM EST Narrative 04/01/2025 11:26 AM EST [facility] [address] [place] [address] Mammography Report Signed Patient: Yennifer Munguia MR#: [id number] : 1990 Acct:[id number] Age/Sex: 34 / F ADM Date: 04/01/25 Loc: HO.MAMMO Attending Dr: Dudley Ascencio CNM Ordering Physician: DUDLEY ASCENCIO CNM Results: 2 Benign Date of Service: 04/01/25 Follow Up: 1 Year From Orig ina Mammogram Procedure(s): MM tomosynthesis diagnostic BI Accession Number(s): [id number] cc: DUDLEY ASCENCIO CNM Reason For Exam: [...] 04/01/25 1123 DD/ 1056 TD/TT: 04/01/25 1057 Climatologist: Procedure Note Donotuseinterpreter, Image - 04/01/2025 [place] [facility] [address] [place] [address] Mammography Report Signed Patient: Federico Munguia#: [id number] : 1990Acct:[id number] Age/Sex: 34 / FADM Date: 04/01/25 Loc: HO.MAMMO Attending Dr: Dudley Ascencio CNM Ordering Physician: DUDLEY ASCENCIOesults: 2 Benign Date of Service: 04/01/25Follow Up: 1 Year From Orig ina Mammogram Procedure(s): MM tomosynthesis diagnostic BI Accession Number(s): [id number] cc: DUDLEY ASCENCIO CNM Reason For Exam: [...] by: Joellen Fischer MD 04/01/2025 11:23 AM [facility] Dictated By: Joellen Fischer MD Signed By: <Electronically signed by Joellen Fischer MD in OV> 04/01/25 1123 DD/ 1056 TD/TT: 04/01/25 1057 Climatologist: Dudley SALAS IM BI PROCEDURES Final R esult * HPV DNA, Low/High Risk (11/29/2024 11:43 AM EDT) HPV High Risk Negative Negative [facility] HPV Genotype 16 Negative Negative [facility] HPV Genotype 18 Negative Negative [facility] Comment:HPV testing performe d at [facility] (CLIA#[id number]), [address] [place] [phone].Testing for HPV was performed using the Deidra LUIS 6800system. The presence of HPV in the female genital tract isassociated with a number of diseases, including cervicalcarcinoma. The HPV DNA high risk pool tests for HPV 31, 33,35, 39, 45, 51, 52, 56, 58, 59, 66 and 68. The testing forHPV 16 and 18 genotypes has also been performed. A positiveresult indicates detection of nucleic acid sequences fromone or more subtypes, whereas a negative result indicatessuch sequences were not detected. 11/29/2024 11:4 3 AM EDT 12/03/2024 8:00 AM EDT Dudley Ascencio [facility] BLOOD ORDERABLES Dania l Result [facility] [address] [place] [phone] * Pap Smear (11/29/2024 11:43 AM EDT) Swab Cervix uteri structure / Unknown 11/29/2024 11:43 AM EDT 12/03/2024 8:00 AM EDT [facility] - 12/11/2024 7:49 AM EDT ----- ------- Name: Yennifer Munguia Age/Sex: 34/F : 1990 Unit#: [id number] Attend Dr: DUDLEY ASCENCIO CNM Re11/29/24 Status: [facility] Disch: ----- ------- SPEC : [id number] RECD: 12/03/24 STATUS: PATRICIA OLSON NUM: [id number] WILMAN: 11/29/[address] [facility] [address]: DUDLEY ASCENCIO CNM ENTERED: 12/03/24 SP TYPE: Pap Smr OTHR DR: [facility] ORDERED: Pap Smear Interpretation Satisfactory for evaluation. [...] and HPV testing will be performed at [facility] (CLIA #[id number]), [address] [place] [address]. Testing for HPV was performed using the [...] detected. All professional services are performed by [facility] ([address] [place] [address], [place] [address]; ; CLIA #[id number]). The PAP Test is a screening procedure with the inherent possibility of both false negative and false positive results. Results should be interpreted in the context of historic and current clinical findings. Reliability of the PAP Test is enhanced by performing the test on a regular repetitive basis. CONTINUED ON NEXT PAGE ----- ------- Name: Yennifer Munguia Age/Sex: 34/F : 1990 Unit#: [id number] Attend Dr: DUDLEY ASCENCIO CNM Re11/29/24 Status: [facility] Location: [facility] Disch: ----- ------- SPEC : [id number] RECD: 12/03/24 STATUS: PATRICIA OLSON NUM: [id number] WILMAN: 11/29/24-1143 [facility] [address]: DUDLEY ASCENCIO CNM ENTERED: 12/03/24 SP TYPE: Pap Smr ARGELIA DR: [facility] ORDERED: Pap Smear Copies To: [address] [address] DUDLEY ASCENCIO CNM [address] [place] [address] ----- ------- Signed (signature on file) Jean CARRIE Olmedo ([facility]) 12/11/24 0749 ----- ------- END OF REPORT us Dudley Ascencio [facility] CYTOLOGY ORDERABLES F inal Result [facility] [address] [place] [phone] * HIV-1/2 Antigen and Antibodies, Fourth Generation, with Reflexes (11/29/2024 11:37 AM EDT) [facility] HIV AB/AG Nonreactive Nonreactive [facility] Comment:HIV-1 p24 Ag and/or HIV-1/HIV-2 Ab not detected.A test result that is nonreactive does not exclude thepossibility of exposure to or infection with HIV-1 and/orHIV-2. Nonreactive results in this assay for individualswith prior exposure to HIV-1 and/or HIV-2 may be due toantigen and antibody levels that are below the limit ofdetection of this assay.The two.42.solutions HIV Ag/Ab Combo assay result andsupplemental assay results should be interpreted inconjunction with the patient's clinical presentation,history and other laboratory results. If the results areinconsistent with clinical evidence, additional testing issuggested to confirm the result. Blood Venous blood specimen / Unknown 11/29/2024 11:37 AM EDT 11/29/2024 1:06 PM EDT us Dudley SALAS LAB BLOOD ORDERABLES Dania l Result Performing Organization Address [facility]/ZIP Co de Phone Number [facility] [address] [place] [phone] * Hepatitis C Antibody with Reflex to HCV, RNA, Quantitative, Real-Time PCR (07/09/2024 2:36 PM EST) Hepatitis C Antibody Nonreactive Nonreactive [facility] Comment:Antibodies to HCV no t detected; does not exclude early acuteHCV infection. Blood Venous blood specimen / Unknown 07/09/2024 2:36 PM EST 07/09/2024 4:20 PM EST us Mariah Meneses MD LAB BLOOD ORDERABLES Final Res ult Performing Organization Address [facility] Co de Phone Number [facility] [address] [place] [phone] from Last 3 Months or Most Recently Relevant to Health Maintenance Insurance [facility] FULL DENTAL - HSN FULL (MEDICAID) DENTAL-[facility] MEDICAID LIMITED ADULT Care Teams Fur Matcher Relationship Specialty Start Date End Date Mariah Meneses MD [address] [place] [phone] PCP - General Family Medicine 07/11/24
[2025-04-23 11:11] LABS: Bacterial Vaginosis PCR POSITIVE (Negative); Candida Group PCR NOT DETECTED (Not Detect); Candida glab krusei PCR NOT DETECTED (Not Detect); Trichomonas vaginalis PCR NOT DETECTED (Not Detect)
[2025-04-23 12:01] LABS: CT PCR NOT DETECTED (Not Detect.); NG PCR NOT DETECTED (Not Detect.)
== END 2025-04-22 18:35 | disposition home or self-care (01) ==
LOC: HO.HHCLNP 18:34
PROVIDERS: Visit Provider Family Medicine
DX: B37.31 Acute candidiasis of vulva and vagina (principal); Z20.2 Contact with and (suspected) exposure to infections with a predominantly sexual mode of transmission
CPT/HCPCS: 81515; 87491; 87591